=== PATIENT | female | born 1970 | race American Indian/Alaskan Native ===

== ENCOUNTER 2020-08-26 07:00 | Outpatient (REF) | payer OTHER, SELFPAY ==
[2020-08-26 07:39] LABS: COVID-19 Test Negative (Negative)
== END 2020-08-26 07:01 | disposition home or self-care (01) ==
LOC: HO.LAB 07:00
PROVIDERS: Visit Provider Internal Medicine
DX: Z20.828 Contact with and (suspected) exposure to other viral communicable diseases (principal)
CPT/HCPCS: 87635

== ENCOUNTER 2020-11-27 10:53 | Outpatient (REF) | payer OTHER, SELFPAY ==
[2020-11-27 11:16] LABS: COVID-19 Test Negative (Negative); IDNOW Serial# 55D5AD1C
== END 2020-11-27 10:54 | disposition home or self-care (01) ==
LOC: HO.EMPCOV 10:53
PROVIDERS: Visit Provider Internal Medicine
DX: Z20.822 Contact with and (suspected) exposure to COVID-19 (principal)
CPT/HCPCS: 36415; 87635; C9803

== ENCOUNTER 2021-01-04 08:13 | Outpatient (REF) | payer OTHER, SELFPAY ==
[2021-01-08 06:12] LABS: HPV mRNA E6/E7 rflx Not Detected (Not Detected)
== END 2021-01-04 08:14 | disposition home or self-care (01) ==
LOC: HO.LAB 08:13
PROVIDERS: Visit Provider Obstetrics & Gynecology
DX: Z01.419 Encounter for gynecological examination (general) (routine) without abnormal findings (principal)
CPT/HCPCS: 36415; 87624; 88142

== ENCOUNTER 2021-01-17 15:04 | Outpatient (REF) | payer OTHER, SELFPAY ==
--- NOTE | ~2021-01-17 | MM_ITS ---
EXAMINATION: MM SCREENING DIGITAL BREAST TOMOSYNTHESIS, BILATERAL CLINICAL INFORMATION: Screening. Asymptomatic. The lifetime risk of breast cancer based on the Tyrer-Cuzick Model is 12%. COMPARISON: Mammography: 01/21/2020, 01/12/2020, 12/03/2018, 05/09/2016 TECHNIQUE: Digital breast tomosynthesis is performed in both the craniocaudal and mediolateral oblique views along with computer-aided detection (CAD). Synthesized 2D images are generated from the tomosynthesis. FINDINGS: There are scattered areas of fibroglandular density (ACR BI-RADS breast composition Category b). There are no significant masses, abnormal calcifications, or other abnormalities. The lateral cyst with some scattered peripheral rim calcification central anterior 12:00 right breast is decreased in size. The axilla and skin contours are unremarkable. No significant changes. MM/MM tomosynthesis screening BI IMPRESSION: No mammographic evidence of malignancy. ASSESSMENT: BI-RADS 2: Benign RECOMMENDATION: Routine annual mammography screening. This patient's information was entered into a reminder system with a target due date for their next mammogram.
== END 2021-01-17 15:05 | disposition home or self-care (01) ==
LOC: HO.MAMMO 15:04
PROVIDERS: Visit Provider Obstetrics & Gynecology
DX: Z12.31 Encounter for screening mammogram for malignant neoplasm of breast (principal)
CPT/HCPCS: 77063; 77067

== ENCOUNTER 2021-09-15 07:12 | Outpatient (REF) | payer OTHER, SELFPAY ==
[2021-09-15 08:13] LABS: Hematocrit 39.1 % (37.0-47.0); Hemoglobin 13.3 g/dl (12.0-16.0); Mean Corpuscular Hemoglobin 30.9 pg (27.0-33.0); Mean Corpuscular Volume 90.9 fL (80.0-98.0); Mean Platelet Volume 8.8 fL (9.4-12.3); Platelet Count 404 X10*3/uL (160-400); Red Cell Distribution Width 13.3 % (11.0-16.0); White Blood Count 8.3 X10*3/uL (4.8-10.8)
[2021-09-15 08:37] LABS: Alanine Aminotransferase 85 U/L (0-31); Albumin Level 4.5 g/dL (3.5-5.0); Alkaline Phosphatase 75 U/L (39-117); Anion Gap 10 (12-20); Aspartate Amino Transferase 36 U/L (5-31); Bilirubin Total 0.6 mg/dL (0.0-1.0); Blood Urea Nitrogen 16 mg/dL (9-16); Calcium 9.6 mg/dL (8.4-10.2); Carbon Dioxide 30 mmol/L (22-29); Chloride 101 mmol/L (96-108); Cholesterol 283 mg/dL; Estimated Glomerular Filt Rate > 60; Glucose Fasting 95 mg/dL (60-99); HDL Cholesterol 45 mg/dL; LDL Cholesterol Calculated 208 mg/dl; Potassium 4.2 mmol/L (3.3-5.1); Sodium 137 mmol/L (135-145); Total Protein 7.3 g/dL (6.5-8.0); Triglycerides 150 mg/dL
[2021-09-15 08:50] LABS: Estimated Average Glucose 103 mg/dL; Hemoglobin A1c % 5.2 %
[2021-09-22 19:01] LABS: Cortisol, Free 0.59 mcg/dL
== END 2021-09-15 07:13 | disposition home or self-care (01) ==
LOC: HO.LAB 07:12
PROVIDERS: PCP Physician Assistant; Visit Provider Physician Assistant
DX: Z13.29 Encounter for screening for other suspected endocrine disorder (principal); E66.09 Other obesity due to excess calories; Z68.35 Body mass index [BMI] 35.0-35.9, adult; E78.2 Mixed hyperlipidemia
CPT/HCPCS: 36415; 80053; 80061; 82530; 83036; 84443; 85027

== ENCOUNTER 2021-10-19 15:27 | Outpatient (REF) | payer OTHER, SELFPAY ==
--- NOTE | ~2021-10-19 | US_ITS ---
EXAMINATION: US RETROPERITONEAL LIMITED (RENAL ONLY) CLINICAL INFORMATION: Malignant neoplasm of right kidney, except renal pelvis. COMPARISON: CT abdomen and pelvis 05/27/2020. Ultrasound kidneys and bladder 11/03/2019. TECHNIQUE: Real-time imaging of the kidneys. FINDINGS: RIGHT KIDNEY: 11.0 x 5.0 x 5.3 cm (SAG x AP x TRV). The kidney is normal in size, contour, and echogenicity. Renal cortical thickness is normal. No calculi or focal parenchymal lesions. No hydronephrosis. The previously identified lesion exophytic to the lateral midpole of the right kidney is not seen. LEFT KIDNEY: 12.2 x 5.4 x 4.9 cm (SAG x AP x TRV). The kidney is normal in size, contour, and echogenicity. Renal cortical thickness is normal. No calculi or focal parenchymal lesions. No hydronephrosis. Liver echotexture is increased. US/US renal BI IMPRESSION: Normal renal ultrasound. The previously identified lesion exophytic to the lateral midpole the right kidney is not seen.
== END 2021-10-19 15:28 | disposition home or self-care (01) ==
LOC: HO.US 15:27
PROVIDERS: PCP Physician Assistant; Visit Provider Physician Assistant
DX: C64.1 Malignant neoplasm of right kidney, except renal pelvis (principal)
CPT/HCPCS: 76775

== ENCOUNTER 2021-11-25 07:13 | Outpatient (REF) | payer OTHER, SELFPAY ==
[2021-11-25 07:41] LABS: COVID-19 Test Negative (Negative)
== END 2021-11-25 07:14 | disposition home or self-care (01) ==
LOC: HO.LAB 07:13
PROVIDERS: Visit Provider Internal Medicine
DX: Z20.822 Contact with and (suspected) exposure to COVID-19 (principal)
CPT/HCPCS: 87635

== ENCOUNTER → 2021-12-06 14:21 | Outpatient (BNVA) | payer OTHER, SELFPAY | PROVIDERS: PCP Physician Assistant; Visit Provider Nurse Practitioner Family ==

== ENCOUNTER 2022-01-20 08:15 | Day surgery (SDC) | payer OTHER, SELFPAY ==
--- NOTE | 2022-01-19 09:27 | P.CONAN_ITS ---
Documented by User: Radha Chaves NP 01/19/22 09:29 HPI - Anesthesia Eval Consult details Narrative: 51yo F for Colonoscopy PMFSH Active Problems Active Problems: All Active Problems (Updated 01/16/22 @ 10:48 by Ariana Anguiano, RN) Annual physical exam (Acute) Renal carcinoma (Acute) Obese (Acute) HLD (hyperlipidemia) (Acute) Well woman exam (Acute) Screening for hypothyroidism (Acute) Screening for diabetes mellitus (DM) (Acute) Family history of colon cancer (Acute) Past Medical History Medical History (Updated 01/16/22 @ 10:48 by Ariana Anguiano, RN) Chronic back pain High cholesterol History of renal cell cancer Family History Family History Father Renal cyst Hypertension Mother Rectal cancer Sister Lesion of uterus Surgical History Surgical History (Updated 01/16/22 @ 10:48 by Ariana Anguiano RN) H/O hernia repair History of colonoscopy History of kidney surgery History of tubal ligation Incarcerated hernia Social History Social History Housing: Condominium Alcohol intake: never Patient Tobacco Use Status: Never used Tobacco Tobacco use type: Cigarette e-Cigarette/Vaping Use: Never Used service: No Current occupational status: employed Meds Allergies Allergy/AdvReac Type Severity Reaction Status Date / Time Seasonal Allergies Allergy Mild watery Verified 12/06/21 14:26 eyes, runny nose Exam Exam Date and Time: January 19, [id number] Pertinent Lab Results Pertinent Lab Results: Laboratory Tests 09/15/21 09/15/21 07:22 07:22 WBC 8.3 Hgb 13.3 Hct 39.1 Plt Count 404 H Sodium 137 Potassium 4.2 Chloride 101 Carbon Dioxide 30 H BUN 16 Creatinine 0.74 Assessment and Plan Assessment Anesthesia Assessment: Chart Reviewed Documented by User: Cheo Garcia MD 01/20/22 20:54 [facility] Past Medical History Medical History (Updated 01/16/22 @ 10:48 by Ariana Anguiano, RN) Chronic back pain High cholesterol History of renal cell cancer Functional capacity: independent ambulation Family History Family History Father Renal cyst Hypertension Mother Rectal cancer Sister Lesion of uterus Family history of problems with anesthesia: No Surgical History Surgical History (Updated 01/16/22 @ 10:48 by Ariana Anguiano, RN) H/O hernia repair History of colonoscopy History of kidney surgery History of tubal ligation Incarcerated hernia History of Problems with Anesthesia: No Social History Social History Housing: Condominium Alcohol intake: never Patient Tobacco Use Status: Never used Tobacco Tobacco use type: Cigarette e-Cigarette/Vaping Use: Never Used service: No Current occupational status: employed Meds Allergies Allergy/AdvReac Type Severity Reaction Status Date / Time Seasonal Allergies Allergy Mild watery Verified 12/06/21 14:26 eyes, runny nose Exam Airway Mallampati Class: III TM Dist: >3cm Neck ROM: Full Loose/Missing/Broken Teeth: Yes Heart: rrr Lungs: distant breath sounds Assessment and Plan Assessment Anesthesia Assessment: Anesthesia Plan Discussed Final Anesthetic Review Family History of Problems with Anesthesia: No History of Problems with Anesthesia: No NPO: Yes ASA Class: III Final Preanesthetic Review: Meds/Allgs Chart Reviewed, Consent Obtained/Reviewed and Anes Risks/Benef Reviewed Patient Risk: Intermediate Procedure Risk: Intermediate Anesthetic Plan Anesthetic Plan: MAC: Disposition: Standard PACU
--- NOTE | 2022-01-20 09:51 | P.HPSUR_ITS ---
Pre-Procedural Eval Section A Date of Service: 01/20/22 The patient is an INPATIENT: No The History & Physical has been completed within 30 days and I have reviewed it.: No Section B Chief Complaint: screening, FH of colon cancer Details of Present Illness: Colon cancer screening, history of colon polyps, family history of colon cancer Relevant Family History (Specify if Yes): Yes Relevant Social History: None Present Medications: see Short Stay Collaborative assessment (Hyperlipidemia, history of renal cancer) Medical History: Significant History History of Previous Operations: Relevant previous surgery/procedure and date(s) (H/O hernia repair History of colonoscopy History of tubal ligation Incarcerated hernia) Allergies: Allergies Allergy/AdvReac Type Severity Reaction Status Date / Time Seasonal Allergies Allergy Mild watery Verified 12/06/21 14:26 eyes, runny nose Review of Systems Sugical H&P ROS: Negative: Constitution, Cardiovascular, Respiratory and Ashok rointestinal Exam Surgical H&P Exam: Normal: Heart, Normal: Lungs and Normal: Extremities Plan Diagnosis/Plan: Unchanged I have reviewed the history and physical and performed a pertinent physical examination on my patient. No changes have occurred unless specified.
--- NOTE | 2022-01-20 09:54 | P.OP_ITS ---
Operative Note Operative Note Date of Service: 01/20/22 Narrative: Pre-op diagnosis: Colon cancer screening, history of colon polyps, family history of colon cancer Post-op diagnosis:?other (Colon polyps, diverticulosis) Procedure: COLONOSCOPY TILL CECUM WITH BIOPSIES AND SNARE POLYPECTOMY Consent: Indications for the procedure and potential complications of bleeding, perforation, reaction to medications and missed diagnosis were discussed with the patient and informed consent was obtained. Instrument: Olympus PCF H 190 L variable stiffness pediatric colonoscope Monitoring: Vital signs and clinical assessment, intermittent blood pressure monitoring, continuous EKG monitoring, Pulse oximetry and Carbon Dioxide monitoring were done throughout the procedure. Colon withdrawl time was 27 minutes. Procedure: The patient was placed in the left lateral decubitis position and pre-procedure medications were administered. After a digital rectal examination of the ano-rectum, the video colonoscope was inserted into the rectum and advanced through the colon to the cecum. The colonoscope was slowly withdrawn in a retrograde panoramic fashion and the colon mucosa was carefully examined including a retroflexed view of the rectum. Findings and interventions are described below. Procedure Difficulty: Without difficulty Findings: Terminal Ileum: Not evaluated Cecum:? Normal Ascending Colon:? a 7-8 mm sessile polyp removed with a cold snare Transverse Colon:? Normal Descending Colon:? Moderate diverticulosis Sigmoid Colon:? Three 8 -10 mm sessile polyps removed with a cold snare.? A 12-15 mm sessile polyp removed with the hot snare. A 4-5 mm sessile polyp removed with the cold biopsy.? Moderate diverticulosis Rectum:? Normal Ano-rectum:? Normal Colon preparation:? Good after some irrigation (pt was able to take half of the prep due to nausea) Impression and Post Procedure Diagnosis: Colonoscopy Findings: Six small to medium sized polyps removed Moderate diverticulosis seen in the left colon Plan: Await pathology results Patient has an appointment on 02/03/22 in the GI Clinic with Poonam Vogt FNP- [facility]. Repeat Colonoscopy interval based on path results - in 3-5 years if polyps are adenomatous and 10 years if polyps are hyperplastic. Above findings were reviewed with the patient and colon polyps and diverticulosis handouts were given in the discharge area Surgeon: Hafsa Donis MD Anesthesia:?MAC (Dr Garcia) Was an Air Tube Releaser used for this Procedure?:?No Air Tube Releaser:?Jahaira Parmar Estimated blood loss (mL):?0 Pathology:?other (A. ascending colon polyp? B. sigmoid polyps (5)) Condition:?stable Disposition:?PACU
[2022-01-20 09:56] VITALS: BMI 34.3
[2022-01-20 10:02] VITALS: BP 135/87; PULSE 95; RESP 18; TEMP 36.3; O2SAT 97
[2022-01-20] MEDS: Lactated Ringers 1,000 ML 100 ML IVCONT (10:07)
[2022-01-20 11:13] VITALS: BP 134/82; PULSE 100; RESP 17; TEMP 36.1; O2SAT 100
[2022-01-20 11:28] VITALS: BP 139/87; PULSE 98; RESP 18; TEMP 36.1; O2SAT 98
== END 2022-01-20 12:00 | disposition home or self-care (01) ==
PROVIDERS: PCP Physician Assistant; Visit Provider Internal Medicine Gastroenterology
PROC: 0DJD8ZZ Inspection of Lower Intestinal Tract, Via Natural or Artificial Opening Endoscopic (ICD-10-PCS; CPT 45378; principal; 2022-01-20 09:50)
DX: Z12.11 Encounter for screening for malignant neoplasm of colon (principal); Z80.0 Family history of malignant neoplasm of digestive organs; Z86.010 Personal history of colon polyps; D12.2 Benign neoplasm of ascending colon; D12.5 Benign neoplasm of sigmoid colon; K57.30 Diverticulosis of large intestine without perforation or abscess without bleeding; Z85.528 Personal history of other malignant neoplasm of kidney; E78.00 Pure hypercholesterolemia, unspecified; Z79.899 Other long term (current) drug therapy
CPT/HCPCS: 45385; 45380; 88305

== ENCOUNTER → 2022-02-06 14:33 | Outpatient (BNVA) | payer OTHER, SELFPAY | PROVIDERS: PCP Physician Assistant; Referring Provider Physician Assistant; Visit Provider Nurse Practitioner Family | DX: Z13.89 Encounter for screening for other disorder (principal) ==

== ENCOUNTER 2022-06-07 15:32 | Outpatient (REF) | payer OTHER, SELFPAY ==
--- NOTE | ~2022-06-07 | MM_ITS ---
EXAMINATION: MM SCREENING DIGITAL BREAST TOMOSYNTHESIS, BILATERAL CLINICAL INFORMATION: Screening. Asymptomatic. The lifetime risk of breast cancer based on the Tyrer-Cuzick Model is 10%. COMPARISON: Mammography: 01/17/2021, 01/21/2020, 01/12/2020, 12/03/2018 TECHNIQUE: Digital breast tomosynthesis is performed in both the craniocaudal and mediolateral oblique views along with computer-aided detection (CAD). Synthesized 2D images are generated from the tomosynthesis. FINDINGS: There are scattered areas of fibroglandular density (ACR BI-RADS breast composition Category b). Parenchymal pattern is similar to prior exam. There is no significant mass or developing density or architectural abnormality. No abnormal calcifications. The axilla and skin contours are unremarkable. No significant changes. MM/MM tomosynthesis screening BI IMPRESSION: No mammographic evidence of malignancy. ASSESSMENT: BI-RADS 1: Negative RECOMMENDATION: Routine annual mammography screening. This patient's information was entered into a reminder system with a target due date for their next mammogram.
== END 2022-06-07 15:33 | disposition home or self-care (01) ==
LOC: HO.MAMMO 15:32
PROVIDERS: Visit Provider Obstetrics & Gynecology
DX: Z12.31 Encounter for screening mammogram for malignant neoplasm of breast (principal)
CPT/HCPCS: 77063; 77067

== ENCOUNTER 2022-11-03 06:57 | Outpatient (REF) | payer OTHER, SELFPAY ==
--- NOTE | ~2022-11-03 | US_ITS ---
EXAMINATION: US ABDOMEN LIMITED CLINICAL INFORMATION: Other specified abnormal findings of blood chemistry. COMPARISON: Renal ultrasound 10/19/2021. CT of the abdomen and pelvis 05/27/2020. Ultrasound of the kidneys and bladder 11/03/2019. TECHNIQUE: Real-time imaging of the right upper quadrant abdominal viscera. FINDINGS: PANCREAS: Pancreas could not be evaluated as it was obscured by bowel gas. LIVER: The liver is most likely enlarged with normal contour but increased echogenicity consistent with hepatic steatosis. The liver contour is normal. No focal hepatic lesion. There is no intrahepatic biliary duct dilatation seen. GALLBLADDER: Not seen although it was present on the 05/27/2020 study. Please correlate with surgical history. If there has not been a cholecystectomy, it may be that the gallbladder is just contracted and not visualized. COMMON BILE DUCT: Normal in caliber measuring 0.4 cm in diameter. RIGHT KIDNEY: The renal lesion which was decreasing in size on the CT scan is not identified on the current exam. No hydronephrosis. No renal calculi or focal parenchymal lesions. The kidney measures 10.3 cm in maximum dimension. FREE FLUID: None. US/US abdomen limited IMPRESSION: Enlarged fatty liver.
[2022-11-03 07:26] LABS: Hematocrit 41.3 % (37.0-47.0); Hemoglobin 13.9 g/dl (12.0-16.0); Mean Corpuscular HGB Conc 33.7 g/dl (31.0-35.0); Mean Corpuscular Hemoglobin 30.7 pg (27.0-33.0); Mean Corpuscular Volume 91.2 fL (80.0-98.0); Mean Platelet Volume 8.9 fL (9.4-12.3); Platelet Count 417 X10*3/uL (160-400); Red Blood Count 4.53 X10*6/uL (4.20-5.50); Red Cell Distribution Width 13.2 % (11.0-16.0); White Blood Count 8.8 X10*3/uL (4.8-10.8)
[2022-11-03 08:11] LABS: Alanine Aminotransferase 62 U/L (0-31); Albumin Level 4.7 g/dL (3.5-5.0); Alkaline Phosphatase 80 U/L (39-117); Anion Gap 13 (12-20); Aspartate Amino Transferase 28 U/L (5-31); Bilirubin Total 0.5 mg/dL (0.0-1.0); Blood Urea Nitrogen 18 mg/dL (9-16); Calcium 9.8 mg/dL (8.4-10.2); Carbon Dioxide 28 mmol/L (22-29); Chloride 104 mmol/L (96-108); Cholesterol 304 mg/dL; Estimated Glomerular Filt Rate > 60; Glucose Fasting 97 mg/dL (60-99); HDL Cholesterol 50 mg/dL; LDL Cholesterol Calculated 227 mg/dl; Potassium 4.2 mmol/L (3.3-5.1); Sodium 141 mmol/L (135-145); Total Protein 7.5 g/dL (6.5-8.0); Triglycerides 136 mg/dL
[2022-11-03 09:30] LABS: Urine Cytology See Pathology rpt
[2022-11-03 10:05] LABS: Appearance Urine Cloudy; Color Urine Yellow; Glucose Urine UA Negative (Negative); Leukocyte Esterase Urine Negative (Negative); Nitrite Urine Negative (Negative); PH 5.5 (5.0-9.0); Specific Gravity - Urine 1.025 (1.005-1.025); Urine Blood Negative (Negative); Urine Ketones Negative (Negative); Urine Protein Negative (Neg-Trace)
== END 2022-11-03 06:58 | disposition home or self-care (01) ==
LOC: HO.HMGCX 06:57
PROVIDERS: PCP Physician Assistant; Visit Provider Physician Assistant
DX: E66.09 Other obesity due to excess calories (principal); Z68.35 Body mass index [BMI] 35.0-35.9, adult; E78.2 Mixed hyperlipidemia; C64.1 Malignant neoplasm of right kidney, except renal pelvis; R30.0 Dysuria; R79.89 Other specified abnormal findings of blood chemistry; R79.9 Abnormal finding of blood chemistry, unspecified
CPT/HCPCS: 36415; 76705; 80053; 80061; 81003; 84443; 85027; 88112

== ENCOUNTER 2023-01-10 14:04 | Outpatient (REF) | payer OTHER, SELFPAY | END 2023-01-10 14:05 | disposition home or self-care (01) | LOC: HO.LAB 14:04 | PROVIDERS: PCP Physician Assistant; Referring Provider Nurse Practitioner Family; Visit Provider Surgery | DX: L02.215 Cutaneous abscess of perineum (principal) | CPT/HCPCS: 56405; 87070; 87147; 87205 ==

== ENCOUNTER → 2023-01-11 13:48 | Outpatient (BNVA) | payer OTHER, SELFPAY | PROVIDERS: PCP Physician Assistant; Visit Provider Surgery | DX: Z13.89 Encounter for screening for other disorder (principal) ==

== ENCOUNTER → 2023-02-07 15:02 | Outpatient (BNVA) | payer OTHER, SELFPAY | PROVIDERS: PCP Physician Assistant; Visit Provider Nurse Practitioner Family | DX: Z13.89 Encounter for screening for other disorder (principal) ==

== ENCOUNTER 2023-05-24 13:53 | Outpatient (AMB) | payer OTHER, SELFPAY ==
[2023-05-24 13:55] VITALS: BP 130/80; BMI 35.5
--- NOTE | 2023-05-24 13:55 | MHC.OFFVIS ---
Intake Vital Signs 05/24/23 13:55 Height 5 ft 4 in Weight 207 lb BMI 35.5 BP 130/80 Blood Pressure Location Lt brachial Position Sitting Intake Visit Reasons: [employer]OR annual exam Allergies Seasonal Allergies Allergy (Mild, Verified 05/24/23 13:58) watery eyes, runny nose HPI HPI Comments History of Present Illness Details Presenting for annual exam. No complaints. Last Pap/HPV was negative in 01/23 Last Mammogram was BI-RADS 1 in 06/26 Last Colonoscopy was in 01/24, the recommendation was to repeat in 3 years [facility] Medical History Abscess (01/10/23) Chronic back pain Diverticulosis High cholesterol History of renal cell cancer Surgical History H/O hernia repair History of colonoscopy History of kidney surgery History of tubal ligation Incarcerated hernia Family History Father Renal cyst Hypertension Mother Rectal cancer Sister Lesion of uterus Social History Household Members: None Housing: Condominium Alcohol intake: never Patient Tobacco Use Status: Never used Tobacco Tobacco use type: Cigarette e-Cigarette/Vaping Use: Never Used Second Hand Smoke Exposure: No service: No Current occupational status: employed Current occupation: [employer] Cognitive needs: No Hearing needs: No Vision needs: No Female Reproductive History Menstrual Age of Menarche: 13 Total pregnancies: 2 Number of Living Children: 2 Date of last pap smear: 01/06/21 (WNL) Review of Systems Const All systems reviewed & are unremarkable except as noted in HPI and below Card Reports as per HPI Resp Reports as per HPI GI Reports as per HPI and Reports no additional complaints Reports as per HPI Physical Exam Vital Signs: Last Vital Signs BP 130/80 05/24/23 13:55 BMI result Body Mass Index 35.5 Const General: cooperative, healthy appearing and comfortable Chest Chest palpation & inspection: normal inspection of the chest and normal palpation of entire chest wall Breast/axilla inspection: normal inspection of the breasts and normal inspection of the axillae Breast/axilla palpation: normal palpation of the breasts, normal palpation of the axillae and no axillary lymphadenopathy Resp Effort & Inspection: normal respiratory effort Auscultation: clear to auscultation bilaterally Percussion: percussion normal Cardio Palpation: normal PMI Rate: regular rate Rhythm: regular rhythm Heart sounds: no murmurs and no rubs Peripheral pulses: Peripheral pulses 2+ throughout GI Inspection: Yes normal to inspection Palpation (GI): Soft to palpation, nontender, no guarding, not rigid and No hepatosplenomegaly present Percussion: Yes normal to percussion Auscultation: normal bowel sounds Rectal Exam - Female: deferred General: Yes bladder normal to palpation External Female Exam: No lesion Speculum Exam - Vagina: normal appearance of the vagina, normal palpation, normal vaginal discharge and not erythematous Speculum Exam - Cervix: normal appearance of the cervix and normal palpation Bimanual exam- vagina & uterus: normal bimanual exam, normal palpation, uterine size normal, bladder normal to palpation, consistency normal and normal palpation Bimanual Exam- Adnexa, other: normal adnexae, no masses and no tenderness Assessment & Plan Assessment & Plan (1) Well woman exam: Code(s): Z01.419 - Encounter for gynecological examination (general) (routine) without abnormal findings Plan: Co testing not indicated this. Counseled the patient about the recommended dietary allowance of 1200 mg of Calcium & 600 IU of vitamin D. Mammogram ordered , the patient is up-to-date with her screening colonoscopy . The patient was instructed to perform monthly self-breast exams and schedule annual exam in a year; all questions answered and the patient verbalized understanding. Orders: Orders MM screening mammo BI Today Z12.31 - Encounter for screening mammogram for malignant neoplasm of breast Coding Level of Care Code Est Pt Prev Care 40-64y(88850) Diagnoses Well woman exam Z01.419
== END 2023-05-24 14:18 | disposition home or self-care (01) ==
LOC: HO.HWS 13:53
PROVIDERS: PCP Physician Assistant; Visit Provider Obstetrics & Gynecology
DX: Z01.419 Encounter for gynecological examination (general) (routine) without abnormal findings (principal)
CPT/HCPCS: 99396

== ENCOUNTER → 2023-05-24 13:53 | Outpatient (BNVA) | payer OTHER, SELFPAY | PROVIDERS: PCP Physician Assistant; Visit Provider Obstetrics & Gynecology ==

== ENCOUNTER 2023-06-27 11:41 | Outpatient (REF) | payer OTHER, SELFPAY ==
--- NOTE | ~2023-06-27 | MM_ITS ---
EXAMINATION: MM SCREENING DIGITAL BREAST TOMOSYNTHESIS, BILATERAL CLINICAL INFORMATION: Screening. Asymptomatic. COMPARISON: Mammography: 06/07/2022, 01/17/2021, 01/21/2020, 01/12/2020, 12/03/2018 TECHNIQUE: Digital breast tomosynthesis is performed in both the craniocaudal and mediolateral oblique views along with computer-aided detection (CAD). Synthesized 2D images are generated from the tomosynthesis. FINDINGS: There are scattered areas of fibroglandular density (ACR BI-RADS breast composition Category b). There are a few scattered dermal calcifications, benign. There is mild motion on the left CC projection. There are no suspicious masses, suspicious grouped calcifications, or areas of architectural distortion. The parenchymal pattern is stable from prior exams. MM/MM tomosynthesis screening BI IMPRESSION: No mammographic evidence of malignancy. Stable benign findings. ASSESSMENT: BI-RADS BI-RADS 2 - Benign Findings RECOMMENDATION: Routine annual mammography screening. 1 year F/U This examination should not preclude the clinical evaluation of a suspicious palpable abnormality. This patient's information was entered into a reminder system with a target due date for their next mammogram.
== END 2023-06-27 11:42 | disposition home or self-care (01) ==
LOC: HO.MAMMO 11:41
PROVIDERS: PCP Physician Assistant; Visit Provider Obstetrics & Gynecology
DX: Z12.31 Encounter for screening mammogram for malignant neoplasm of breast (principal)
CPT/HCPCS: 77063; 77067

== ENCOUNTER → 2023-06-27 12:00 | Outpatient (BNV) | payer OTHER, SELFPAY | PROVIDERS: PCP Physician Assistant; Visit Provider Radiology Diagnostic Radiology | DX: Z12.31 Encounter for screening mammogram for malignant neoplasm of breast (principal) | CPT/HCPCS: 77063; 77067 ==

== ENCOUNTER 2023-09-20 15:40 | Outpatient (AMB) | payer OTHER, SELFPAY ==
[2023-09-20 15:46] VITALS: BP 122/70; PULSE 100; O2SAT 98; BMI 35.5
--- NOTE | 2023-09-20 15:46 | A.OFFPC_ITS ---
Vital Signs 09/20/23 15:46 Height 5 ft 4 in Weight 207 lb BMI 35.5 BP 122/70 Blood Pressure Location Lt brachial Position Sitting Pulse 100 Pulse Source Pulse Oximeter Pulse Oximetry (%) 98 Oxygen Delivery Method Room Air Intake Visit Reasons: Annual Exam Sweatband Separator Required: No Accompanied by: Self / Same As Patient Allergies Seasonal Allergies Allergy (Mild, Verified 09/20/23 16:16) watery eyes, runny nose Medication List - Last Reconciled 09/20/23 by Victor M Christensen PA-C atorvastatin 20 mg PO DAILY 90 days Tobacco use date assessed: 09/20/23 Dental Screening Dental Screen Date: 09/20/23 Did you have a dental visit in the last 12 months?: Yes Did you have a dental problem in the last 6 months where you did not have access to dental care?: No Was dental information given to patient?: Patient has dentist HPI Annual Exam HPI Details Patient is a 52 -year-old female here today for annual physical.? Patient has a past medical history significant obesity carcinoma of the right kidney, hypercholesterolemia, vitamin-D deficiency. .. Renal Carinoma: followed by Urology- Recent CT ABD- Showing no progression in the size of mass or any new growths.? She was followed by urologist though has lost follow-ups and has not had any surveillance imaging. PLAN: Will send patient for renal ultrasound for continuing surveillance renal mass. .. HLD: Continues on statin therapy without side effect. Advised to go for fasting labs a stop. .. Obesity: Patient does understand her BMI is above 30 will work on being more physically active to reduce her weight . Colonoscopy followed by gastroenterology - colonoscopy done in 2021, tubular adenomas polyps, repeat 3 years .. vaccine: UTD Tdap ,, UTD with COVID vacine, . Considering shingles vaccine .. Mammogram:? Up-to-date with mammogram-done in June 2023- BI-RADS 2 .. 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 REPLACED BY [facility] Medical History Abscess (01/10/23) Diverticulosis Chronic back pain History of renal cell cancer High cholesterol Surgical History History of kidney surgery History of colonoscopy Incarcerated hernia H/O hernia repair History of tubal ligation Family History Father Renal cyst Hypertension Mother Rectal cancer Sister Lesion of uterus Social History Household Members: None Housing: Condominium Alcohol intake: never Patient Tobacco Use Status: Never used Tobacco Tobacco use type: Cigarette e-Cigarette/Vaping Use: Never Used Second Hand Smoke Exposure: No service: No Current occupational status: employed Current occupation: [employer] Cognitive needs: No Hearing needs: No Vision needs: No Female Reproductive History Menstrual Age of Menarche: 13 Questionnaire PHQ-9 Over the last 2 weeks, how often have you been bothered by any of the following problems? 1. Little interest or pleasure in doing things: not at all 2. Feeling down, depressed, or hopeless: not at all 3. Trouble falling or staying asleep, or sleeping too much: not at all 4. Feeling tired or having little energy: not at all 5. Poor appetite or overeating: not at all 6. Feeling bad about yourself - or that you are a failure or have let yourself or your family down: not at all 7. Trouble concentrating on things, such as reading the newspaper or watching television: not at all 8. Moving or speaking so slowly that other people could have noticed. Or the opposite - being so fidgety or restless that you have been moving around a lot more than usual: not at all 9. Thoughts that you would be better off or of hurting yourself in some way: not at all Total score: 0 Depression Screening Interpretation: Negative Depression Screening Done: Yes 51593 - PHQ-9 Billing: Yes Source: Developed by Drs. Sebas Cowan, Martita Winter, Vikash Oh and colleagues, with an educational toby from [employer]. Thrive Questionnaire Date Thrive assessed: 09/20/23 I am a: Patient What is your living situation today?: I have a steady place to live Within the past 12 months, did the food you bought not last and you didn't have the money to get more?: Never true Within the past 12 months, did you worry whether your food would run out before you got money to buy more?: Never true Do you have trouble paying for medicines?: No Do you have trouble getting transportation to medical appointments?: No Do you have trouble paying your heating and electricity bill?: No Do you have trouble taking care of your child, family member or friend?: No Do you have trouble with day-to-day activities such as bathing, preparing meals, shopping, managing finances, etc.?: No Are you currently unemployed and looking for a job?: No Are you interested in more education?: No Please select the resources that you would like help with: None Currently or been in a relationship where the following occur: no concerns reported AUDIT C Alcohol Use Questionnaire (AUDIT-C) 1. How often do you have a drink containing alcohol?: Never 3. How often do you have six or more drinks on one occasion?: Never Total Score: 0 Score Reviewed/Action Taken: Yes SHERRON-7 AMB Questionnaire SHERRON-7 Date SHERRON - 7 assessed: 09/20/23 Feeling nervous, anxious, or on edge: 0 = Not at all Not being able to stop or control worryin = Not at all Worrying too much about different things: 0 = Not at all Trouble relaxin = Not at all Being so restless that it is hard to sit still: 0 = Not at all Becoming easily annoyed or irritable: 0 = Not at all Feeling afraid as if something awful might happen: 0 = Not at all Total SHERRON-7 score (0-4 normal; 5-9 mild; 10-14 moderate; 15-21 severe): 0 Source: Developed by Drs. Sebas Cowan, Martita Winter, Vikash Oh and colleagues, with an educational toby from [employer]. SHERRON-7 Assessment Billing SHERRON-7 Assessment Tool: SHERRON-7 Assessment 59541 Review of Systems Const Denies body aches, Denies chills, Denies excessive sweating, Denies fatigue, Denies fever(s) and Denies headache(s) Eyes Denies blurry vision ENT Denies dysphagia, Denies vertigo, Denies dizziness, Denies headache(s), Denies hearing loss and Denies tinnitus Card Denies chest pain, Denies chest pain with activity, Denies syncope, Denies irregular heart rhythm and Denies dyspnea Resp Denies chest congestion, Denies cough, Denies hemoptysis, Denies dyspnea and Denies wheezing GI Denies abdominal pain, Denies melena, Denies hematochezia, Denies coffee ground emesis, Denies dysphagia, Denies diarrhea, Denies nausea and Denies vomiting Denies urinary frequency, Denies dysuria, Denies urinary hesitancy and Denies u rinary urgency Musc Denies arthralgias, Denies limited range of motion, Denies muscle cramps and Denies muscle weakness Skin/Breast Denies rash and Denies skin ulcer Neuro Denies Abnormal speech present, Denies confusion, Denies vertigo, Denies dizziness, Denies syncope, Denies headache(s), Denies memory loss and Denies sei zure-like activity Psych Denies anxiety, Denies confusion, Denies depression, Denies memory loss, Denies panic attacks and Denies paranoia Endo Denies excessive sweating, Denies fatigue, Denies flushing, Denies polydipsia and Denies polyuria Aller/Immun Denies wheezing Physical exam (Primary Care) Vital Signs: Last Vital Signs Pulse 100 09/20/23 15:46 BP 122/70 09/20/23 15:46 Pulse Ox 98 09/20/23 15:46 Oxygen Delivery Method Room Air 09/20/23 15:46 BMI result Body Mass Index 35.5 BMI Assessment/Plan discussion: High Tobacco/Smoking Status: Tobacco use Status Tobacco use date assessed 09/20/23 09/20/23 15:51 Patient Tobacco Use Status Never used Tobacco 09/20/23 15:51 Tobacco use type Cigarette 09/20/23 15:51 e-Cigarette/Vaping Use Never Used 09/20/23 15:51 PHQ-9: PHQ-9 Score PHQ-9: Total score 0 09/20/23 16:12 Depression Screening Interpretation: Negative Thrive Assessment: Date of Thrive Assessment Date Thrive assessed 09/20/23 09/20/23 15:51 Currently or been in a relationship where the following occur: no concerns reported Const Other: Obese General: cooperative, comfortable, no acute distress, alert and awake; No confusion Orientation/consciousness: oriented to person, oriented to place, patient oriented x3 and No confusion HENMT Head: Yes normocephalic Ears: external ears normal and TM's normal bilaterally Face and sinus: No sinus tenderness Mouth: Normal oral and palatal mucosa present and tongue normal Teeth and gingiva: dentition normal and gingiva normal Throat: Yes posterior oropharynx normal, Yes tonsils normal and Yes uvula midline Eyes Conjunctivae: conjunctivae normal Sclerae: sclerae normal Pupils: Equal, round and reactive pupils present EOM: EOMs intact bilaterally Direct Ophthalmoscopy: No no photophobia Neck Neck: Yes no lymphadenopathy, No tender and Yes no JVD Thyroid: Thyroid normal Carotids: no bruits Chest Chest palpation & inspection: no tenderness Resp Effort & Inspection: normal respiratory effort, no audible wheezes, not labored and no stridor Auscultation: no crackles, no rales, no rhonchi and no wheezes Cardio Jugular venous distension: no JVD Rate: regular rate, not bradycardic and not tachycardic Rhythm: regular rhythm Bruits: no carotid bruits Peripheral pulses: Peripheral pulses 2+ throughout GI Inspection: Yes normal to inspection, No abdominal wall ecchymosis and No visible herniation Palpation (GI): Soft to palpation, nontender, no guarding, not rigid and No hepatosplenomegaly present Auscultation: normoactive bowel sounds General: Yes no CVA tenderness Back/Spine/Pelvis Back: no CVA tenderness and No back tenderness Cervical Spine: cervical ROM normal Thoracic/Lumbar Spine: thoracic and lumbar spine normal to inspection, straight leg raise negative bilaterally, No thoraco-lumbar ROM limited and No lumbar spinal tenderness Skin Lesions: no lesions Rashes: no rashes Wounds: no wounds Neuro General: oriented to person, oriented to place, patient oriented x3, CN's II-XI intact bilaterally and No confusion Cranial nerves: Yes Equal, round and reactive pupils present and Yes Normal accommodation reflex present Cognition (Neuro): normal cognition Speech: No Abnormal speech present Gait exam (Neuro): Normal gait present Motor exam (neuro): 5/5 motor strength present throughout Extrem Right upper extremity: full ROM; no cyanosis Left upper extremity: full ROM; no cyanosis Right lower extremity: no edema Left lower extremity: no edema Psych Appearance: grossly normal Mental Status: mental status grossly normal Affect: normal affect Attitude: cooperative Thought process: Normal thought process present Assessment and Plan Assessment & Plan (1) Annual physical exam: Code(s): Z00.00 - Encounter for general adult medical examination without abnormal findings (2) Obese: Code(s): E66.9 - Obesity, unspecified Qualifiers: Body mass index: BMI 35.0-35.9 Obesity classification: adult class 2 (BMI 35 - 39.9) Obesity type: due to excess calories Serious obesity comorbidi ty presence: without serious comorbidity Qualified Code(s): E66.09 - Other obesity due to excess calories; Z68.35 - Body mass index [BMI] 35.0-35.9, adult Plan: Patient does understand her BMI is over 30 will work on being more physically active an Adapta better eating habits to reduce her weight. Patient is willing to try oral weight loss medication temporarily to help kick start weight loss. (3) HLD (hyperlipidemia): Code(s): E78.5 - Hyperlipidemia, unspecified Qualifiers: Hyperlipidemia type: mixed hyperlipidemia Qualified Code(s): E78.2 - Mixed hyperlipidemia Plan: Patient continues on moderate delete dosed statin therapy. Most recent lipid panel showing very elevated total cholesterol and LDL above 200. Advised to get fasting lipid panel GIRMA. LDL to be below 130 (4) Elevated LFTs: Code(s): R79.89 - Other specified abnormal findings of blood chemistry Plan: Ultrasound of liver does show signs consistent with fatty liver disease. Will continue working on weight reduction. (5) Renal carcinoma: Code(s): C64.9 - Malignant neoplasm of unspecified kidney, except renal pelvis Qualifiers: Laterality: right Qualified Code(s): C64.1 - Malignant neoplasm of right kidney, except renal pelvis Plan: Patient has a history of renal carcinoma. Has not had any surveillance recently. Will send for renal ultrasound to evaluate for any enlarging mass. (6) Screening for diabetes mellitus (DM): Code(s): Z13.1 - Encounter for screening for diabetes mellitus Orders: Orders US renal RT 09/20/23 C64.1 - Malignant neoplasm of right kidney, except renal pelvis Lipid Panel 09/20/23 E78.2 - Mixed hyperlipidemia Comprehensive [place]. Panel Fast 09/20/23 E78.2 - Mixed hyperlipidemia Complete Blood Count no Diff 09/20/23 E78.2 - Mixed hyperlipidemia Medications: New phentermine must administer 30 minutes before or 1-2 hours after breakfast 37.5 mg PO DAILY 28 days 28 tabs 0RF E66.09 - Other obesity due to excess calories, Z68.35 - Body mass index [BMI] 35.0-35.9, adult Refilled atorvastatin 20 mg PO DAILY 90 days 90 tabs 2RF E78.2 - Mixed hyperlipidemia Coding Level of Care Code Est Pt Prev Care 40-64y(42548) Diagnoses Annual physical exam Z00.00 Class 2 obesity due to excess calories without serious comorbidity with body mass index (BMI) of 35.0 to 35.9 in adult E66.09; Z68.35 Body mass index: BMI 35.0-35.9 Obesity classification: adult class 2 (BMI 35 - 39.9) Obesity type: due to excess calories Serious obesity comorbidity presence: without serious comorbidity Mixed hyperlipidemia E78.2 Hyperlipidemia type: mixed hyperlipidemia Elevated LFTs R79.89 Carcinoma of right kidney C64.1 Laterality: right Screening for diabetes mellitus (DM) Z13.1 Additional Codes SHERRON-7 Assessment Billing - SHERRON-7 Assessment Tool: SHERRON-7 Assessment 92171 ([id number])
== END 2023-09-20 16:34 | disposition home or self-care (01) ==
PROVIDERS: Visit Provider Physician Assistant
DX: Z00.00 Encounter for general adult medical examination without abnormal findings (principal); C64.1 Malignant neoplasm of right kidney, except renal pelvis; E66.09 Other obesity due to excess calories; Z68.35 Body mass index [BMI] 35.0-35.9, adult; E78.2 Mixed hyperlipidemia; R79.89 Other specified abnormal findings of blood chemistry; Z13.1 Encounter for screening for diabetes mellitus
CPT/HCPCS: 99396

== ENCOUNTER 2023-10-03 13:42 | Outpatient (REF) | payer OTHER, SELFPAY ==
--- NOTE | ~2023-10-03 | US_ITS ---
EXAMINATION: US RETROPERITONEAL LIMITED, RIGHT CLINICAL INFORMATION: Malignant neoplasm of right kidney, except renal pelvis. History of renal cancer. COMPARISON: Ultrasound abdomen limited 11/03/2022. Ultrasound retroperitoneal limited 10/19/2021. CT abdomen and pelvis without and with contrast 05/27/2020. TECHNIQUE: Real-time imaging of the right kidney. FINDINGS: RIGHT KIDNEY: 10.8 x 5.1 x 4.8 cm (SAG x AP x TRV). The kidney is normal in size, contour, and echogenicity. Renal cortical thickness is normal. No hydronephrosis. A 1.2 cm slightly echogenic mass noted along the right mid renal pole without internal vascularity, not seen on prior ultrasounds although possibly correlating to the site of prior cryoablation seen 05/27/2020 where it measured 2 cm. Partially imaged liver appears echogenic suggestive of hepatic steatosis or underlying liver disease. This could be further characterized with a dedicated right upper quadrant ultrasound if clinically indicated. US/US renal RT IMPRESSION: 1. A 1.2 cm slightly echogenic mass noted along the right mid renal pole without internal vascularity, not seen on prior ultrasounds although possibly correlating to the site of prior cryoablation seen 05/27/2020 where it measured 2 cm, however given new from prior ultrasounds consider confirmation with CT or MRI renal mass protocol to assess for any locally recurrent disease. 2. Partially imaged liver appears echogenic suggestive of hepatic steatosis or underlying liver disease. This could be further characterized with a dedicated right upper quadrant ultrasound
== END 2023-10-03 13:43 | disposition home or self-care (01) ==
LOC: HO.HMGCX 13:42
PROVIDERS: PCP Physician Assistant; Visit Provider Physician Assistant
DX: C64.1 Malignant neoplasm of right kidney, except renal pelvis (principal)
CPT/HCPCS: 76775

== ENCOUNTER 2023-10-09 07:01 | Outpatient (REF) | payer OTHER, SELFPAY ==
[2023-10-09 07:29] LABS: Hematocrit 41.5 % (37.0-47.0); Hemoglobin 14.1 g/dl (12.0-16.0); Mean Corpuscular Hemoglobin 30.6 pg (27.0-33.0); Mean Platelet Volume 8.8 fL (9.4-12.3); Platelet Count 434 X10*3/uL (160-400); Red Blood Count 4.61 X10*6/uL (4.20-5.50); Red Cell Distribution Width 13.1 % (11.0-16.0); White Blood Count 10.8 X10*3/uL (4.8-10.8)
[2023-10-09 07:43] LABS: Alanine Aminotransferase 61 U/L (0-31); Albumin Level 4.7 g/dL (3.5-5.0); Alkaline Phosphatase 84 U/L (39-117); Anion Gap 14 (12-20); Aspartate Amino Transferase 34 U/L (5-31); Bilirubin Total 0.8 mg/dL (0.0-1.0); Blood Urea Nitrogen 14 mg/dL (9-16); Calcium 9.9 mg/dL (8.4-10.2); Carbon Dioxide 27 mmol/L (22-29); Chloride 103 mmol/L (96-108); Cholesterol 216 mg/dL (<200); Estimated Glomerular Filt Rate > 60; Glucose Fasting 101 mg/dL (60-99); HDL Cholesterol 50 mg/dL (>40); LDL Cholesterol Calculated 143 mg/dL (<100); Potassium 3.6 mmol/L (3.3-5.1); Sodium 140 mmol/L (135-145); Total Protein 8.2 g/dL (6.5-8.0); Triglycerides 115 mg/dL (<150)
== END 2023-10-09 07:02 | disposition home or self-care (01) ==
LOC: HO.LAB 07:01
PROVIDERS: PCP Physician Assistant; Visit Provider Physician Assistant
DX: E78.2 Mixed hyperlipidemia (principal)
CPT/HCPCS: 36415; 80053; 80061; 85027

== ENCOUNTER 2023-11-13 08:08 | Outpatient (REF) | payer OTHER, SELFPAY ==
--- NOTE | ~2023-11-13 | MR_ITS ---
EXAMINATION: MR ABDOMEN WITHOUT AND WITH CONTRAST CLINICAL INFORMATION: Malignant neoplasm of the right kidney COMPARISON: Renal ultrasound 09/24/1993, CT abdomen and pelvis 05/27/2020 TECHNIQUE: MRI of the abdomen before and after the IV administration of 9 mL of Gadavist was obtained using routine sequences. FINDINGS: LUNG BASES: The visualized lung bases are unremarkable. KIDNEYS AND URETERS: Posttreatment changes in the right lower pole renal cryoablation with some intrinsically T1 bright /T2 dark nonenhancing material measuring 0.9 cm previously 2.1 cm which may some residual loculated proteinaceous/hemorrhagic fluid and sequelae of posttreatment change. No enhancing solid soft tissue to suggest residual recurrent disease. GALLBLADDER: Cholelithiasis without evidence of acute cholecystitis. LIVER AND BILIARY TREE: Loss of signal on opposed phase imaging compatible with hepatic steatosis. Scattered benign-appearing simple hepatic cysts. No intra or extrahepatic biliary duct dilatation. PANCREAS: Unremarkable SPLEEN: Accessory splenule incidentally noted. ADRENAL GLANDS: Unremarkable GASTROINTESTINAL TRACT: Unremarkable. LYMPH NODES: No lymphadenopathy. VASCULAR: Unremarkable ABDOMINAL WALL: Unremarkable. OSSEOUS STRUCTURES: Unremarkable. MR/MR abdomen wo/w con IMPRESSION: Posttreatment changes in the right lower pole of the kidney without findings to suggest residual or recurrent disease. Cholelithiasis without evidence of acute cholecystitis.
[2023-11-13] MEDS: gadobutroL 10 ML VIAL IVPUSH (08:58)
== END 2023-11-13 08:09 | disposition home or self-care (01) ==
LOC: HO.MRI 08:08
PROVIDERS: PCP Physician Assistant; Visit Provider Physician Assistant
DX: C64.1 Malignant neoplasm of right kidney, except renal pelvis (principal)
CPT/HCPCS: 74183; A9585

== ENCOUNTER 2023-11-14 15:26 | Outpatient (AMB) | payer OTHER, SELFPAY ==
--- NOTE | 2023-11-14 15:27 | MHC.PC.OV ---
Vital Signs 11/14/23 15:28 Height 5 ft 4 in Weight 196 lb 0.8 oz BMI 33.6 BP 124/78 Blood Pressure Location Lt brachial Position Sitting Pulse 88 Pulse Source Pulse Oximeter Pulse Oximetry (%) 98 Oxygen Delivery Method Room Air Intake Visit Reasons: 8 week f/u Allergies Seasonal Allergies Allergy (Mild, Verified 11/14/23 15:38) watery eyes, runny nose Medication List - Last Reconciled 11/14/23 by Victor M Christensen PA-C atorvastatin 20 mg PO DAILY 90 days phentermine 37.5 mg PO DAILY 28 days Tobacco use date assessed: 11/14/23 Dental Screening Dental Screen Date: 11/14/23 Did you have a dental visit in the last 12 months?: Yes Did you have a dental problem in the last 6 months where you did not have access to dental care?: No Was dental information given to patient?: Patient has dentist HPI 8 week f/u HPI Details Patient is a 52 -year-old female here today for a follow-up visit.? Patient has a past medical history significant obesity carcinoma of the right kidney, hypercholesterolemia, vitamin-D deficiency. .. Renal Carinoma: followed by Urology- Recent CT ABD- Showing no progression in the size of mass or any new growths.? She was followed by urologist though has lost follow-ups and has not had any surveillance imaging. We did again a follow-up renal ultrasound did show 1.2 cm mass MRI of abdomen recommended. MRI done recently in awaiting results.. .. HLD: Continues on statin therapy without side effect. Most recent lipid panel showing much improved total cholesterol and LDL. .. Obesity: At last visit we decided to start phentermine which has helped her lose weight. She reports having more motivation has been bit more physically active. Her portion control has been much better. Laboratory Tests 09/15/21 09/15/21 11/03/22 07:22 07:22 07:01 RBC Fasting Glucose AST ALT Cholesterol 283 304 LDL Cholesterol, C alc 208 11/03/22 10/09/23 07:01 07:10 RBC 4.61 Fasting Glucose 101 H AST 34 H ALT 61 H Cholesterol 216 H LDL Cholesterol, C alc 227 143 H PFS Medical History Abscess (01/10/23) Diverticulosis Chronic back pain History of renal cell cancer High cholesterol Surgical History History of kidney surgery History of colonoscopy Incarcerated hernia H/O hernia repair History of tubal ligation Family History Father Renal cyst Hypertension Mother Rectal cancer Sister Lesion of uterus Social History Household Members: None Housing: Condominium Alcohol intake: never Patient Tobacco Use Status: Never used Tobacco Tobacco use type: Cigarette e-Cigarette/Vaping Use: Never Used Second Hand Smoke Exposure: No service: No Current occupational status: employed Current occupation: [employer] Cognitive needs: No Hearing needs: No Vision needs: No Female Reproductive History Menstrual Age of Menarche: 13 Questionnaire Thrive Questionnaire Date Thrive assessed: 09/20/23 AUDIT C Alcohol Use Questionnaire (AUDIT-C) 1. How often do you have a drink containing alcohol?: Never 3. How often do you have six or more drinks on one occasion?: Never Total Score: 0 Score Reviewed/Action Taken: Yes SHERRON-7 AMB Questionnaire SHERRON-7 Date SHERRON - 7 assessed: 11/14/23 Source: Developed by Drs. Sebas Cowan, Martita Winter, Vikash Oh and colleagues, with an educational toby from [employer]. Review of Systems Const Denies headache(s) Eyes Denies loss of vision ENT Denies vertigo, Denies dizziness, Denies headache(s) and Denies sore throat Card Denies chest pain, Denies leg edema and Denies lightheadedness Resp Denies cough, Denies hemoptysis and Denies wheezing GI Denies abdominal pain, Denies melena, Denies constipation, Denies diarrhea and Denies vomiting Denies urinary frequency, Denies dysuria and Denies urinary urgency Musc Denies arthralgias, Denies joint swelling, Denies numbness and Denies tingling Neuro Denies Abnormal speech present, Denies behavioral changes, Denies vertigo, Denies dizziness, Denies headache(s), Denies loss of vision, Denies memory loss, Denies numbness and Denies tingling Psych Denies anxiety, Denies behavioral changes, Denies depression, Denies memory loss and Denies panic attacks Wes/Lymph Denies easy bleeding and Denies easy bruising Aller/Immun Denies wheezing Physical exam (Primary Care) Vital Signs: Last Vital Signs Pulse 88 11/14/23 15:28 BP 124/78 11/14/23 15:28 Pulse Ox 98 11/14/23 15:28 Oxygen Delivery Method Room Air 11/14/23 15:28 BMI result Body Mass Index 33.6 BMI Assessment/Plan discussion: High Tobacco/Smoking Status: Tobacco use Status Tobacco use date assessed 11/14/23 11/14/23 15:29 Patient Tobacco Use Status Never used Tobacco 11/14/23 15:29 Tobacco use type Cigarette 11/14/23 15:29 e-Cigarette/Vaping Use Never Used 11/14/23 15:29 Thrive Assessment: Date of Thrive Assessment Date Thrive assessed 09/20/23 11/14/23 15:29 Const Other: Obese General: healthy appearing, no acute distress, alert and awake Nutritional Appearance: well nourished Orientation/consciousness: oriented to person, oriented to place and oriented to time HENMT Ears: TM's normal bilaterally General nose exam: Normal nasal mucous membranes and turbinates present Eyes Conjunctivae: conjunctivae normal Sclerae: sclerae normal Pupils: Equal, round and reactive pupils present Neck Neck: Yes no lymphadenopathy and Yes no JVD Thyroid: Thyroid normal Carotids: no bruits Resp Effort & Inspection: normal respiratory effort and not tachypneic Auscultation: no crackles, no rales, no rhonchi and no wheezes Cardio Rate: regular rate Rhythm: regular rhythm Heart sounds: no murmurs and normal S1 and S2 GI Palpation (GI): Soft to palpation, nontender, no hepatomegaly and no splenomegaly Auscultation: normal bowel sounds Skin General skin exam: no rashes or lesions noted and dry skin Neuro General: oriented to person, oriented to place and oriented to time Cranial nerves: Yes Equal, round and reactive pupils present Speech: No Abnormal speech present Gait exam (Neuro): Normal gait present Motor exam (neuro): no tremor noted Extrem Right upper extremity: full ROM Left upper extremity: full ROM Right lower extremity: full ROM; no edema Left lower extremity: full ROM; no edema Psych Mental Status: mental status grossly normal Speech and movement: Normal speech and movement present Affect: normal affect Attitude: cooperative Thought process: Normal thought process present Assessment and Plan Assessment & Plan (1) Obese: Code(s): E66.9 - Obesity, unspecified Qualifiers: Obesity type: due to excess calories Obesity classification: adult class 2 (BMI 35 - 39.9) Serious obesity comorbidity presence: without serious comorbidity Body mass index: BMI 35.0-35.9 Qualified Code(s): E66.09 - Other obesity due to excess calories; Z68.35 - Body mass index [BMI] 35.0-35.9, adult Plan: Has lost 10 lb since last office visit. BMI improved. She has been feeling much better. Has been using phentermine on as needed basis and feels it gives her motivation. We did discuss the possibility of transitioning to a GL P 1 for weight loss and patient is considering. (2) HLD (hyperlipidemia): Code(s): E78.5 - Hyperlipidemia, unspecified Qualifiers: Hyperlipidemia type: mixed hyperlipidemia Qualified Code(s): E78.2 - Mixed hyperlipidemia Plan: Patient continues on moderate delete dosed statin therapy. Most recent fasting lipid panel showing much improved total cholesterol and LDL. LDL to be below 130 (3) Elevated LFTs: Code(s): R79.89 - Other specified abnormal findings of blood chemistry Plan: Ultrasound of liver does show signs consistent with fatty liver disease. Will continue working on weight reduction. (4) Renal carcinoma: Code(s): C64.9 - Malignant neoplasm of unspecified kidney, except renal pelvis Qualifiers: Laterality: right Qualified Code(s): C64.1 - Malignant neoplasm of right kidney, except renal pelvis Plan: Patient has a history of renal carcinoma. Has had recent ultrasound showing 1.2 cm mass which could be a sequelae of her cryo ablation. MRI abdomen done and awaiting results. Orders: Orders Lipid Panel 10 Months E78.2 - Mixed hyperlipidemia Comprehensive [place]. Panel Fast 10 Months Z13.1 - Encounter for screening for diabetes mellitus Coding Level of Care Code Est Pt Level 4 (60858) Diagnoses Class 2 obesity due to excess calories without serious comorbidity with body mass index (BMI) of 35.0 to 35.9 in adult E66.09; Z68.35 Obesity type: due to excess calories Obesity classification: adult class 2 (BMI 35 - 39.9) Serious obesity comorbidity presence: without serious comorbidity Body mass index: BMI 35.0-35.9 Mixed hyperlipidemia E78.2 Hyperlipidemia type: mixed hyperlipidemia Elevated LFTs R79.89 Carcinoma of right kidney C64.1 Laterality: right
[2023-11-14 15:28] VITALS: BP 124/78; PULSE 88; O2SAT 98; BMI 33.6
== END 2023-11-14 16:36 | disposition home or self-care (01) ==
PROVIDERS: PCP Physician Assistant; Visit Provider Physician Assistant
DX: E78.2 Mixed hyperlipidemia (principal); E66.09 Other obesity due to excess calories; Z68.35 Body mass index [BMI] 35.0-35.9, adult; C64.1 Malignant neoplasm of right kidney, except renal pelvis; R79.89 Other specified abnormal findings of blood chemistry
CPT/HCPCS: 99214

== ENCOUNTER 2024-08-22 08:56 | Outpatient (REF) | payer OTHER, SELFPAY ==
--- NOTE | ~2024-08-22 | MM_ITS ---
EXAMINATION: MM SCREENING DIGITAL BREAST TOMOSYNTHESIS, BILATERAL CLINICAL INFORMATION: Screening. Asymptomatic. COMPARISON: Mammography: Comparison is made with available priors TECHNIQUE: Digital breast mammography with tomosynthesis is performed in both the craniocaudal and mediolateral oblique views along with computer-aided detection (CAD). FINDINGS: There are scattered areas of fibroglandular density (ACR BI-RADS breast composition Category b). There are no significant masses, abnormal calcifications, or other abnormalities. MM/MM tomosynthesis screening BI IMPRESSION: No mammographic evidence of malignancy. ASSESSMENT: BI-RADS BI-RADS 1 - Negative RECOMMENDATION: Routine annual mammography screening. 1 year F/U This examination should not preclude the clinical evaluation of a suspicious palpable abnormality. This patient's information was entered into a reminder system with a target due date for their next mammogram. Electronically signed by: Mariana Resendez DO 09/02/2024 02:46 PM EDT
== END 2024-08-22 08:57 | disposition home or self-care (01) ==
LOC: HO.MAMMO 08:56
PROVIDERS: PCP Physician Assistant; Visit Provider Physician Assistant
DX: Z12.31 Encounter for screening mammogram for malignant neoplasm of breast (principal)
CPT/HCPCS: 77063; 77067

== ENCOUNTER → 2024-08-22 09:00 | Outpatient (BNV) | payer OTHER, SELFPAY | PROVIDERS: PCP Physician Assistant; Visit Provider Internal Medicine | DX: Z12.31 Encounter for screening mammogram for malignant neoplasm of breast (principal) | CPT/HCPCS: 77063; 77067 ==

== ENCOUNTER 2024-09-08 10:32 | Outpatient (AMB) | payer OTHER, SELFPAY ==
[2024-09-08 10:32] VITALS: BP 132/66; BMI 34.4
--- NOTE | 2024-09-08 10:32 | A.OFFVIS_ITS ---
Vital Signs 09/08/24 10:32 Height 5 ft 4 in Weight 200 lb 4 oz BMI 34.4 BP 132/66 Blood Pressure Location Lt brachial Position Sitting Intake Visit Reasons: [employer] annual exam/DO NOT RS Allergies Seasonal Allergies Allergy (Mild, Verified 09/08/24 10:32) watery eyes, runny nose HPI Comments Details: Presenting for annual exam. No complaints. Last Pap/HPV was negative in 01/23 Last Mammogram was BI-RADS 1 in 08/28 Last Colonoscopy was in 01/24, the recommendation was to repeat in 3 years [facility] Medical History Abscess (01/10/23) Diverticulosis Chronic back pain History of renal cell cancer High cholesterol Surgical History History of kidney surgery History of colonoscopy Incarcerated hernia H/O hernia repair History of tubal ligation Family History Father Renal cyst Hypertension Mother Rectal cancer Sister Lesion of uterus Social History Household Members: None Housing: Condominium Alcohol intake: never Patient Tobacco Use Status: Never used Tobacco Tobacco use type: Cigarette e-Cigarette/Vaping Use: Never Used Second Hand Smoke Exposure: No service: No Current occupational status: employed Current occupation: [employer]- [employer] Cognitive needs: No Hearing needs: No Vision needs: No Female Reproductive History Menstrual Age of Menarche: 13 control method: none Total pregnancies: 2 Full term: 2 Number of Living Children: 2 Date of last pap smear: 01/06/21 History of abnormal pap smear: No History of STI: No Date of Mammogram: 08/22/24 History of abnormal mammogram: No Review of Systems Const All systems reviewed & are unremarkable except as noted in HPI and below Card Reports as per HPI Resp Reports as per HPI GI Reports as per HPI and Reports no additional complaints Reports as per HPI Physical Exam Const General: cooperative, healthy appearing and comfortable Chest Chest palpation & inspection: normal inspection of the chest and normal palpation of entire chest wall Breast/axilla inspection: normal inspection of the breasts and normal inspection of the axillae Breast/axilla palpation: normal palpation of the breasts, normal palpation of the axillae and no axillary lymphadenopathy Resp Effort & Inspection: normal respiratory effort Auscultation: clear to auscultation bilaterally Percussion: percussion normal Cardio Palpation: normal PMI Rate: regular rate Rhythm: regular rhythm Heart sounds: no murmurs and no rubs Peripheral pulses: Peripheral pulses 2+ throughout GI Inspection: Yes normal to inspection Palpation (GI): Soft to palpation, nontender, no guarding, not rigid and No h epatosplenomegaly present Percussion: Yes normal to percussion Auscultation: normal bowel sounds Rectal Exam - Female: deferred General: Yes bladder normal to palpation External Female Exam: No lesion Speculum Exam - Vagina: normal appearance of the vagina, normal palpation, normal vaginal discharge and not erythematous Speculum Exam - Cervix: normal appearance of the cervix and normal palpation Bimanual exam- vagina & uterus: normal bimanual exam, normal palpation, uterine size normal, bladder normal to palpation, consistency normal and normal palpation Bimanual Exam- Adnexa, other: normal adnexae, no masses and no tenderness Assessment & Plan Assessment & Plan (1) Well woman exam: Code(s): Z01.419 - Encounter for gynecological examination (general) (routine) without abnormal findings Category: Medical Plan: Co testing not indicated this year. Counseled the patient about the recommended dietary allowance of 1200 mg of Calcium & 600 IU of vitamin D. Instructions given the patient to schedule next screening Mammogram in 08/29. The patient was instructed to perform monthly self-breast exams and schedule annual exam in a year. All questions answered and the patient verbalized understanding. Coding Level of Care Code Est Pt Prev Care 40-64y(98981) Diagnoses Well woman exam Z01.419
== END 2024-09-08 10:48 | disposition home or self-care (01) ==
LOC: HO.HWS 10:33
PROVIDERS: PCP Physician Assistant; Visit Provider Obstetrics & Gynecology
DX: Z01.419 Encounter for gynecological examination (general) (routine) without abnormal findings (principal)
CPT/HCPCS: 99396

== ENCOUNTER → 2024-09-08 10:32 | Outpatient (BNVA) | payer OTHER, SELFPAY | PROVIDERS: PCP Physician Assistant; Visit Provider Obstetrics & Gynecology ==

== ENCOUNTER 2024-09-23 14:53 | Outpatient (AMB) | payer OTHER, SELFPAY ==
--- NOTE | 2024-09-23 15:12 | A.OFFPC_ITS ---
Vital Signs 09/23/24 15:15 Height 5 ft 4 in Weight 199 lb 6 oz BMI 34.2 BP 148/94 H Blood Pressure Location Lt brachial Position Sitting Pulse 100 Pulse Source Pulse Oximeter Pulse Oximetry (%) 97 Oxygen Delivery Method Room Air Intake Visit Reasons: Annual exam Intake Note: Patient is here today for a physical. Education Department Registrar Required: No Accompanied by: Self / Same As Patient Allergies Seasonal Allergies Allergy (Mild, Verified 09/23/24 15:34) watery eyes, runny nose Medication List - Last Reconciled 09/23/24 by Victor M Christensen PA-C atorvastatin 20 mg PO DAILY 90 days Tobacco use date assessed: 11/14/23 Dental Screening Dental Screen Date: 11/14/23 HPI Annual exam HPI Details Patient is a 53 -year-old female here today for routine annual physical.? Patient has a past medical history significant obesity carcinoma of the right kidney, hypercholesterolemia, vitamin-D deficiency. .. Renal Carinoma: followed by Urology- Recent CT ABD- Showing no progression in the size of mass or any new growths.? She was followed by urologist though has lost follow-ups and has not had any surveillance imaging. Has been followed with abdominal MRIs. .. HLD: Continues on statin therapy without side effect. Most recent lipid panel showing much improved total cholesterol and LDL. .. Obesity: Unfortunately has not been able to lose much weight on her own. She does admit to being a bit more physically active and adapting better eating habits. Phentermine though had side effects.. She is interested in starting a GLP 1 to help her lose weight Colonoscopy followed by gastroenterology - colonoscopy done in 2021, tubular adenomas polyps, repeat 3 years .. vaccine: UTD Tdap ,, UTD with COVID vacine, up-to-date with flu vaccine . Considering shingles vaccine .. Mammogram:? Up-to-date with mammogram-done in June 2023- BI-RADS 2 .. 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 Laboratory Tests 10/09/23 07:10 Cholesterol 216 H LDL Cholesterol, C alc 143 H PFSH Medical History (Updated 09/24/24 @ 07:28 by Victor M Christensen PA-C) Perineal abscess Abscess (01/10/23) Chronic back pain History of renal cell cancer High cholesterol Surgical History History of kidney surgery History of colonoscopy Incarcerated hernia H/O hernia repair History of tubal ligation Family History Father Renal cyst Hypertension Mother Rectal cancer Sister Lesion of uterus Social History Household Members: None Housing: Condominium Alcohol intake: never Patient Tobacco Use Status: Never used Tobacco Tobacco use type: Cigarette e-Cigarette/Vaping Use: Never Used Second Hand Smoke Exposure: No service: No Current occupational status: employed Current occupation: [employer] Cognitive needs: No Hearing needs: No Vision needs: No Female Reproductive History Menstrual Age of Menarche: 13 Questionnaire PHQ-9 Over the last 2 weeks, how often have you been bothered by any of the following problems? 1. Little interest or pleasure in doing things: not at all 2. Feeling down, depressed, or hopeless: not at all 3. Trouble falling or staying asleep, or sleeping too much: not at all 4. Feeling tired or having little energy: not at all 5. Poor appetite or overeating: not at all 6. Feeling bad about yourself - or that you are a failure or have let yourself or your family down: not at all 7. Trouble concentrating on things, such as reading the newspaper or watching television: not at all 8. Moving or speaking so slowly that other people could have noticed. Or the opposite - being so fidgety or restless that you have been moving around a lot more than usual: not at all 9. Thoughts that you would be better off or of hurting yourself in some way: not at all Total score: 0 Depression Screening Interpretation: Negative Depression Screening Done: Yes 33180 - PHQ-9 Billing: Yes Source: Developed by Drs. Sebas Cowan, Martita Winter, Vikash Oh and colleagues, with an educational toby from [employer]. Thrive Questionnaire Date Thrive assessed: 09/23/24 I am a: Patient What is your living situation today?: I have a steady place to live Within the past 12 months, did the food you bought not last and you didn't have the money to get more?: Never true Within the past 12 months, did you worry whether your food would run out before you got money to buy more?: Never true Do you have trouble paying for medicines?: No Do you have trouble getting transportation to medical appointments?: No Do you have trouble paying your heating and electricity bill?: No Do you have trouble taking care of your child, family member or friend?: No Do you have trouble with day-to-day activities such as bathing, preparing meals, shopping, managing finances, etc.?: No Are you currently unemployed and looking for a job?: No Are you interested in more education?: No Please select the resources that you would like help with: None Currently or been in a relationship where the following occur: No concerns reported THRIVE Score: 0 AUDIT C Alcohol Use Questionnaire (AUDIT-C) 1. How often do you have a drink containing alcohol?: Never 3. How often do you have six or more drinks on one occasion?: Never Total Score: 0 Score Reviewed/Action Taken: Yes SHERRON-7 AMB Questionnaire SHERRON-7 Date SHERRON - 7 assessed: 09/23/24 Feeling nervous, anxious, or on edge: 0 = Not at all Not being able to stop or control worryin = Not at all Worrying too much about different things: 0 = Not at all Trouble relaxin = Not at all Being so restless that it is hard to sit still: 0 = Not at all Becoming easily annoyed or irritable: 0 = Not at all Feeling afraid as if something awful might happen: 0 = Not at all Total SHERRON-7 score (0-4 normal; 5-9 mild; 10-14 moderate; 15-21 severe): 0 Source: Developed by Drs. Sebas Cowan, Martita Winter, Vikash Oh and colleagues, with an educational toby from [employer]. SHERRON-7 Assessment Billing SHERRON-7 Assessment Tool: SHERRON-7 Assessment 53687 Review of Systems Const Denies body aches, Denies chills, Denies excessive sweating, Denies fatigue, Denies fever(s) and Denies headache(s) Eyes Denies blurry vision ENT Denies dysphagia, Denies vertigo, Denies dizziness, Denies headache(s), Denies hearing loss and Denies tinnitus Card Denies chest pain, Denies chest pain with activity, Denies syncope, Denies irregular heart rhythm and Denies dyspnea Resp Denies chest congestion, Denies cough, Denies hemoptysis, Denies dyspnea and Denies wheezing GI Denies abdominal pain, Denies melena, Denies hematochezia, Denies coffee ground emesis, Denies dysphagia, Denies diarrhea, Denies nausea and Denies vomiting Denies urinary frequency, Denies dysuria, Denies urinary hesitancy and Denies urinary urgency Musc Denies arthralgias, Denies limited range of motion, Denies muscle cramps and Denies muscle weakness Skin/Breast Denies rash and Denies skin ulcer Neuro Denies Abnormal speech present, Denies confusion, Denies vertigo, Denies dizziness, Denies syncope, Denies headache(s), Denies memory loss and Denies seizure-like activity Psych Denies anxiety, Denies confusion, Denies depression, Denies memory loss, Denies panic attacks and Denies paranoia Endo Denies excessive sweating, Denies fatigue, Denies flushing, Denies polydipsia and Denies polyuria Aller/Immun Denies wheezing Physical exam (Primary Care) Vital Signs: Last Vital Signs Pulse 100 09/23/24 15:15 BP 148/94 H 09/23/24 15:15 Pulse Ox 97 09/23/24 15:15 Oxygen Delivery Method Room Air 09/23/24 15:15 BMI result Body Mass Index 34.2 BMI Assessment/Plan discussion: High BMI High, discussed plan: lifestyle, weight reduction, dietary and physical activity Tobacco/Smoking Status: Tobacco use Status Tobacco use date assessed 11/14/23 09/23/24 15:13 Patient Tobacco Use Status Never used Tobacco 09/23/24 15:13 Tobacco use type Cigarette 09/23/24 15:13 e-Cigarette/Vaping Use Never Used 09/23/24 15:13 PHQ-9: PHQ-9 Score PHQ-9: Total score 0 09/23/24 15:38 Depression Screening Interpretation: Negative Thrive Assessment: Date of Thrive Assessment Date Thrive assessed 09/23/24 09/23/24 15:17 Currently or been in a relationship where the following occur: No concerns rep orted Const General: cooperative, comfortable, no acute distress, alert and awake; No confusion Orientation/consciousness: oriented to person, oriented to place, patient oriented x3 and No confusion HENMT Head: Yes normocephalic Ears: external ears normal and TM's normal bilaterally Face and sinus: No sinus tenderness Mouth: Normal oral and palatal mucosa present and tongue normal Teeth and gingiva: dentition normal and gingiva normal Throat: Yes posterior oropharynx normal, Yes tonsils normal and Yes uvula midline Eyes Conjunctivae: conjunctivae normal Sclerae: sclerae normal Pupils: Equal, round and reactive pupils present EOM: EOMs intact bilaterally Direct Ophthalmoscopy: No no photophobia Neck Neck: Yes no lymphadenopathy, No tender and Yes no JVD Thyroid: Thyroid normal Carotids: no bruits Chest Chest palpation & inspection: no tenderness Resp Effort & Inspection: normal respiratory effort, no audible wheezes, not labored and no stridor Auscultation: no crackles, no rales, no rhonchi and no wheezes Cardio Jugular venous distension: no JVD Rate: regular rate, not bradycardic and not tachycardic Rhythm: regular rhythm Bruits: no carotid bruits Peripheral pulses: Peripheral pulses 2+ throughout GI Inspection: Yes normal to inspection, No abdominal wall ecchymosis and No visible herniation Palpation (GI): Soft to palpation, nontender, no guarding, not rigid and No hepatosplenomegaly present Auscultation: normoactive bowel sounds General: Yes no CVA tenderness Back/Spine/Pelvis Back: no CVA tenderness and No back tenderness Cervical Spine: cervical ROM normal Thoracic/Lumbar Spine: thoracic and lumbar spine normal to inspection, straight leg raise negative bilaterally, No thoraco-lumbar ROM limited and No lumbar spinal tenderness Skin Lesions: no lesions Rashes: no rashes Wounds: no wounds Neuro General: oriented to person, oriented to place, patient oriented x3, CN's II-XI intact bilaterally and No confusion Cranial nerves: Yes Equal, round and reactive pupils present and Yes Normal accommodation reflex present Cognition (Neuro): normal cognition Speech: No Abnormal speech present Gait exam (Neuro): Normal gait present Motor exam (neuro): 5/5 motor strength present throughout Extrem Right upper extremity: full ROM; no cyanosis Left upper extremity: full ROM; no cyanosis Right lower extremity: no edema Left lower extremity: no edema Psych Appearance: grossly normal Mental Status: mental status grossly normal Affect: normal affect Attitude: cooperative Thought process: Normal thought process present Coding Level of Care Code Est Pt Prev Care 40-64y(43001) Diagnoses Annual physical exam Z00.00 Mixed hyperlipidemia E78.2 Hyperlipidemia type: mixed hyperlipidemia Class 1 obesity E66.811 Carcinoma of right kidney C64.1 Laterality: right Additional Codes SHERRON-7 Assessment Billing - SHERRON-7 Assessment Tool: SHERRON-7 Assessment 95045 ([id number]) PHQ-9 - 27007 - PHQ-9 Billing: Yes ([id number]) Assessment & Plan Assessment & Plan (1) Annual physical exam: Code(s): Z00.00 - Encounter for general adult medical examination without abnormal findings Category: Medical Plan: As per HPI (2) HLD (hyperlipidemia): Code(s): E78.5 - Hyperlipidemia, unspecified Category: Medical Qualifiers: Hyperlipidemia type: mixed hyperlipidemia Qualified Code(s): E78.2 - Mixed hyperlipidemia Plan: Patient is adherent to the use of her cholesterol medication. Will continue to follow lipid panel with goal LDL to be below 130 (3) Class 1 obesity: Code(s): E66.811 - Obesity, class 1 Category: Medical Plan: Patient does understand her BMI is over 30 and has had a lot of trouble losing weight. She is not too physically active though has been making changes in her diet and still has not lost much weight. She will like to try a GLP 1 to help her lose weight and to help her with her comorbidity of hypercholesterolemia. (4) Renal carcinoma: Code(s): C64.9 - Malignant neoplasm of unspecified kidney, except renal pelvis Category: Medical Qualifiers: Laterality: right Qualified Code(s): C64.1 - Malignant neoplasm of right kidney, except renal pelvis Plan: Patient has a history of renal cell carcinoma. She has undergone cryotherapy treatment. Most recent MRI of abdomen done in 11/2023 showing-->Posttreatment changes in the right lower pole of the kidney without findings to suggest residual or recurrent disease Medications: New semaglutide (weight loss) (Yoel) administer weeks 1 through 4 of therapy 0.25 mg (0.5 mL) subcut QWEEK 4 weeks 2 mL 0RF E66.811 - Obesity, class 1, E78.2 - Mixed hyperlipidemia Refilled atorvastatin 20 mg PO DAILY 90 days 90 tabs 2RF E78.2 - Mixed hyperlipidemia
[2024-09-23 15:15] VITALS: BP 148/94; PULSE 100; O2SAT 97; BMI 34.2
== END 2024-09-23 15:52 | disposition home or self-care (01) ==
PROVIDERS: PCP Physician Assistant; Visit Provider Physician Assistant
DX: Z00.00 Encounter for general adult medical examination without abnormal findings (principal); C64.1 Malignant neoplasm of right kidney, except renal pelvis; E66.811 Obesity, class 1; Z68.34 Body mass index [BMI] 34.0-34.9, adult; E78.2 Mixed hyperlipidemia

== ENCOUNTER → 2024-09-23 14:53 | Outpatient (BNVA) | payer OTHER, SELFPAY | PROVIDERS: PCP Physician Assistant; Visit Provider Physician Assistant | DX: Z00.00 Encounter for general adult medical examination without abnormal findings (principal); E78.2 Mixed hyperlipidemia; E66.811 Obesity, class 1; Z68.34 Body mass index [BMI] 34.0-34.9, adult; C64.1 Malignant neoplasm of right kidney, except renal pelvis | CPT/HCPCS: 96127 ==

== ENCOUNTER 2024-11-01 10:15 | Outpatient (REF) | payer OTHER, SELFPAY ==
[2024-11-01 11:36] LABS: Alanine Aminotransferase 43 U/L (0-31); Albumin Level 4.4 g/dL (3.5-5.0); Alkaline Phosphatase 63 U/L (39-117); Anion Gap 11 (12-20); Aspartate Amino Transferase 23 U/L (5-31); Bilirubin Total 0.7 mg/dL (0.0-1.0); Blood Urea Nitrogen 21 mg/dL (9-16); Calcium 9.5 mg/dL (8.4-10.2); Carbon Dioxide 27 mmol/L (22-29); Chloride 107 mmol/L (96-108); Cholesterol 278 mg/dL (<200); Estimated Glomerular Filt Rate > 60; Glucose Fasting 100 mg/dL (60-99); HDL Cholesterol 50 mg/dL (>40); LDL Cholesterol Calculated 200 mg/dL (<100); Potassium 4.2 mmol/L (3.3-5.1); Sodium 141 mmol/L (135-145); Total Protein 7.4 g/dL (6.5-8.0); Triglycerides 140 mg/dL (<150)
== END 2024-11-01 10:16 | disposition home or self-care (01) ==
LOC: HO.LAB 10:15
PROVIDERS: PCP Physician Assistant; Visit Provider Physician Assistant
DX: E78.2 Mixed hyperlipidemia (principal); Z13.1 Encounter for screening for diabetes mellitus
CPT/HCPCS: 36415; 80053; 80061

== ENCOUNTER 2024-11-10 10:55 | Outpatient (AMB) | payer OTHER, SELFPAY ==
[2024-11-10 11:01] VITALS: BP 122/86; PULSE 106; O2SAT 97; BMI 33.7
--- NOTE | 2024-11-10 11:01 | A.OFFPC_ITS ---
Vital Signs 11/10/24 11:01 Height 5 ft 4 in Weight 196 lb 4 oz BMI 33.7 BP 122/86 Blood Pressure Location Lt brachial Position Sitting Pulse 106 H Pulse Source Pulse Oximeter Pulse Oximetry (%) 97 Oxygen Delivery Method Room Air Intake Visit Reasons: f/u weight check Skip Miner Required: No Accompanied by: Self / Same As Patient Allergies Seasonal Allergies Allergy (Mild, Verified 11/10/24 11:11) watery eyes, runny nose Medication List - Last Reconciled 11/10/24 by Victor M Christensen PA-C atorvastatin 20 mg PO DAILY 90 days semaglutide (weight loss) (Wegovy) 0.25 mg (0.5 mL) subcut QWEEK 4 weeks semaglutide (weight loss) (Wegovy) 0.5 mg (0.5 mL) subcut QWEEK 4 weeks Tobacco use date assessed: 11/10/24 Dental Screening Dental Screen Date: 11/10/24 Did you have a dental visit in the last 12 months?: Yes Did you have a dental problem in the last 6 months where you did not have access to dental care?: No Was dental information given to patient?: Patient has dentist HPI f/u weight check HPI Details Patient is a 53 -year-old female here today for a follow-up visit. ? Patient has a past medical history significant obesity carcinoma of the right kidney, hypercholesterolemia, vitamin-D deficiency. .. .. Obesity: Patient has been implementing lifestyle and dietary modifications as a lost a few lb. She has changed her work schedule from working 3rd shift the 2nd shift. She feels a bit better. Unfortunately her insurance did not cover GLP 1 Phentermine though had side effects.. She is interested in starting a GLP 1 to help her lose weight .. Hyperlipidemia: Most recent lipid panel showing very elevated total cholesterol and LDL. She reported at that time not being adherent to use of her statin therapy. She has been more adherent to using atorvastatin daily more recently [facility] Medical History Perineal abscess Abscess (01/10/23) Chronic back pain History of renal cell cancer High cholesterol Surgical History History of kidney surgery History of colonoscopy Incarcerated hernia H/O hernia repair History of tubal ligation Family History Father Renal cyst Hypertension Mother Rectal cancer Sister Lesion of uterus Social History Household Members: None Housing: Condominium Alcohol intake: never Patient Tobacco Use Status: Never used Tobacco Tobacco use type: Cigarette e-Cigarette/Vaping Use: Never Used Second Hand Smoke Exposure: No service: No Current occupational status: employed Current occupation: [employer] Cognitive needs: No Hearing needs: No Vision needs: No Female Reproductive History Menstrual Age of Menarche: 13 Questionnaire PHQ-9 Over the last 2 weeks, how often have you been bothered by any of the following problems? 1. Little interest or pleasure in doing things: not at all 2. Feeling down, depressed, or hopeless: not at all 3. Trouble falling or staying asleep, or sleeping too much: not at all 4. Feeling tired or having little energy: not at all 5. Poor appetite or overeating: not at all 6. Feeling bad about yourself - or that you are a failure or have let yourself or your family down: not at all 7. Trouble concentrating on things, such as reading the newspaper or watching television: not at all 8. Moving or speaking so slowly that other people could have noticed. Or the opposite - being so fidgety or restless that you have been moving around a lot more than usual: not at all 9. Thoughts that you would be better off or of hurting yourself in some way: not at all Total score: 0 Depression Screening Interpretation: Negative Depression Screening Done: Yes 88511 - PHQ-9 Billing: Yes Source: Developed by Drs. Sebas Cowan, Martita Winter, Vikash Oh and colleagues, with an educational toby from [employer]. Thrive Questionnaire Date Thrive assessed: 11/10/24 I am a: Patient What is your living situation today?: I have a steady place to live Within the past 12 months, did the food you bought not last and you didn't have the money to get more?: Never true Within the past 12 months, did you worry whether your food would run out before you got money to buy more?: Never true Do you have trouble paying for medicines?: No Do you have trouble getting transportation to medical appointments?: No Do you have trouble paying your heating and electricity bill?: No Do you have trouble taking care of your child, family member or friend?: No Do you have trouble with day-to-day activities such as bathing, preparing meals, shopping, managing finances, etc.?: No Are you currently unemployed and looking for a job?: No Are you interested in more education?: No Please select the resources that you would like help with: None Currently or been in a relationship where the following occur: No concerns reported THRIVE Score: 0 AUDIT C Alcohol Use Questionnaire (AUDIT-C) 1. How often do you have a drink containing alcohol?: Never 3. How often do you have six or more drinks on one occasion?: Never Total Score: 0 Score Reviewed/Action Taken: Yes SHERRON-7 AMB Questionnaire SHERRON-7 Date SHERRON - 7 assessed: 11/10/24 Feeling nervous, anxious, or on edge: 0 = Not at all Not being able to stop or control worryin = Not at all Worrying too much about different things: 0 = Not at all Trouble relaxin = Not at all Being so restless that it is hard to sit still: 0 = Not at all Becoming easily annoyed or irritable: 0 = Not at all Feeling afraid as if something awful might happen: 0 = Not at all Total SHERRON-7 score (0-4 normal; 5-9 mild; 10-14 moderate; 15-21 severe): 0 Source: Developed by Drs. Sebas Cowan, Martita Winter, Vikash Oh and colleagues, with an educational toby from [employer]. SHERRON-7 Assessment Billing SHERRON-7 Assessment Tool: SHERRON-7 Assessment 44192 Review of Systems Const Denies headache(s) Eyes Denies loss of vision ENT Denies vertigo, Denies dizziness, Denies headache(s) and Denies sore throat Card Denies chest pain, Denies leg edema and Denies lightheadedness Resp Denies cough, Denies hemoptysis and Denies wheezing GI Denies abdominal pain, Denies melena, Denies constipation, Denies diarrhea and Denies vomiting Denies urinary frequency, Denies dysuria and Denies urinary urgency Musc Denies arthralgias, Denies joint swelling, Denies numbness and Denies tingling Neuro Denies Abnormal speech present, Denies behavioral changes, Denies vertigo, Denies dizziness, Denies headache(s), Denies loss of vision, Denies memory loss, Denies numbness and Denies tingling Psych Denies anxiety, Denies behavioral changes, Denies depression, Denies memory loss and Denies panic attacks Wes/Lymph Denies easy bleeding and Denies easy bruising Aller/Immun Denies wheezing Physical exam (Primary Care) Vital Signs: Last Vital Signs Pulse 106 H 11/10/24 11:01 BP 122/86 11/10/24 11:01 Pulse Ox 97 11/10/24 11:01 Oxygen Delivery Method Room Air 11/10/24 11:01 BMI result Body Mass Index 33.7 BMI Assessment/Plan discussion: High BMI High, discussed plan: lifestyle, weight reduction, dietary and physical activity Tobacco/Smoking Status: Tobacco use Status Tobacco use date assessed 11/10/24 11/10/24 11:03 Patient Tobacco Use Status Never used Tobacco 11/10/24 11:03 Tobacco use type Cigarette 11/10/24 11:03 e-Cigarette/Vaping Use Never Used 11/10/24 11:03 PHQ-9: PHQ-9 Score PHQ-9: Total score 0 11/10/24 11:03 Depression Screening Interpretation: Negative Thrive Assessment: Date of Thrive Assessment Date Thrive assessed 11/10/24 11/10/24 11:03 Currently or been in a relationship where the following occur: No concerns reported Const General: healthy appearing, no acute distress, alert and awake Nutritional Appearance: well nourished Orientation/consciousness: oriented to person, oriented to place and oriented to time HENMT Ears: TM's normal bilaterally General nose exam: Normal nasal mucous membranes and turbinates present Eyes Conjunctivae: conjunctivae normal Sclerae: sclerae normal Pupils: Equal, round and reactive pupils present Neck Neck: Yes no lymphadenopathy and Yes no JVD Thyroid: Thyroid normal Carotids: no bruits Resp Effort & Inspection: normal respiratory effort and not tachypneic Auscultation: no crackles, no rales, no rhonchi and no wheezes Cardio Rate: regular rate Rhythm: regular rhythm Heart sounds: no murmurs and normal S1 and S2 GI Palpation (GI): Soft to palpation, nontender, no hepatomegaly and no splenomegaly Auscultation: normal bowel sounds Skin General skin exam: no rashes or lesions noted and dry skin Neuro General: oriented to person, oriented to place and oriented to time Cranial nerves: Yes Equal, round and reactive pupils present Speech: No Abnormal speech present Gait exam (Neuro): Normal gait present Motor exam (neuro): no tremor noted Extrem Right upper extremity: full ROM Left upper extremity: full ROM Right lower extremity: full ROM; no edema Left lower extremity: full ROM; no edema Psych Mental Status: mental status grossly normal Speech and movement: Normal speech and movement present Affect: normal affect Attitude: cooperative Thought process: Normal thought process present Office Procedures Flu Questionnaire Does the patient have a severe egg allergy?: No Immunizations Fluarix Triv [id number] (PF) 45 mcg (15 mcg x 3)/0.5 mL IM syringe Performing Provider: Victor M Christensen PA-C [facility] Documented (not given) by: DELIO Mon on 11/10/24 11:03 Reason Not Given: Patient Refused Coding Level of Care Code Est Pt Level 3 (58340) Diagnoses Class 1 obesity E66.811 Mixed hyperlipidemia E78.2 Hyperlipidemia type: mixed hyperlipidemia Additional Codes SHERRON-7 Assessment Billing - SHERRON-7 Assessment Tool: SHERRON-7 Assessment 86384 ([id number]) PHQ-9 - 42097 - PHQ-9 Billing: Yes ([id number]) Assessment & Plan Assessment & Plan (1) Class 1 obesity: Code(s): E66.811 - Obesity, class 1 Category: Medical Plan: Patient does understand her BMI is over 30 and has been working on lifestyle and dietary modifications to reduce her weight. Unfortunately GLP 1 cm not been covered through her insurance. She would like to hold off on weight loss medication for now and continue working on lifestyle modifications. (2) HLD (hyperlipidemia): Code(s): E78.5 - Hyperlipidemia, unspecified Category: Medical Qualifiers: Hyperlipidemia type: mixed hyperlipidemia Qualified Code(s): E78.2 - Mixed hyperlipidemia Plan: Patient's most recent lipid panel showing very elevated total cholesterol and LDL. She was not consistent with her atorvastatin use at time. She is now more adherent to the medication and would like to recheck her lipids before annual physical this year. Goal LDL is to be below 130 Orders: Orders Influenza [id number] Immunization Today Z23 - Encounter for immunization Medications: Discontinued semaglutide (weight loss) (Wegovy) administer weeks 1 through 4 of therapy Discontinued Reason: Doctor's Order 0.25 mg (0.5 mL) subcut QWEEK 4 weeks 2 mL 0RF E66.811 - Obesity, class 1, E78.2 - Mixed hyperlipidemia semaglutide (weight loss) (Wegovy) administer weeks 5 through 8 of therapy Discontinued Reason: Doctor's Order 0.5 mg (0.5 mL) subcut QWEEK 4 weeks 2 mL 0RF E66.811 - Obesity, class 1
== END 2024-11-10 11:42 | disposition home or self-care (01) ==
PROVIDERS: PCP Physician Assistant; Visit Provider Physician Assistant
DX: E78.2 Mixed hyperlipidemia (principal); E66.811 Obesity, class 1; Z68.33 Body mass index [BMI] 33.0-33.9, adult

== ENCOUNTER → 2024-11-10 10:55 | Outpatient (BNVA) | payer OTHER, SELFPAY | PROVIDERS: PCP Physician Assistant; Visit Provider Physician Assistant | DX: E66.811 Obesity, class 1 (principal); Z68.33 Body mass index [BMI] 33.0-33.9, adult; E78.2 Mixed hyperlipidemia; Z28.21 Immunization not carried out because of patient refusal | CPT/HCPCS: 96127 ==

== ENCOUNTER 2025-03-18 09:11 | Outpatient (AMB) | payer OTHER, SELFPAY ==
[2025-03-18 09:39] VITALS: BP 110/82; PULSE 101; TEMP 36.1; O2SAT 97; BMI 33.9
--- NOTE | 2025-03-18 09:39 | MHC.PC.OV ---
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 ? Patient has a past medical history significant obesity carcinoma of the right kidney, hypercholesterolemia, vitamin-D deficiency. .. .. Obesity: Patient has been implementing lifestyle and dietary modifications in his has been not able to lose much weight. She is feeling a little discouraged about this. . She has changed her work schedule from working 3rd shift the 2nd shift. She feels a bit better. We have tried phentermine has not oral agent to help reduce appetite though had side effects of heart palpitations.. We have tried to prescribe her GLP once in the past though have not insurance coverage. She is interested in starting a GLP 1 to help her lose weight .. Hyperlipidemia: Most recent lipid panel showing very elevated total cholesterol and LDL. She reported at that time not being adherent to use of her statin therapy. She has been more adherent to using atorvastatin daily more recently Laboratory Tests 10/09/23 11/01/24 07:10 10:33 Creatinine 0.76 Fasting Glucose 101 H 100 H AST 34 H 23 ALT 61 H 43 H Cholesterol 278 H LDL Cholesterol, C alc 200 H PFSH Medical History Perineal abscess Abscess (01/10/23) Chronic back pain History of renal cell cancer High cholesterol Surgical History History of kidney surgery History of colonoscopy Incarcerated hernia H/O hernia repair History of tubal ligation Family History Father Renal cyst Hypertension Mother Rectal cancer Sister Lesion of uterus Social History Household Members: None Housing: Condominium Alcohol intake: never Patient Tobacco Use Status: Never used Tobacco Tobacco use type: Cigarette e-Cigarette/Vaping Use: Never Used Second Hand Smoke Exposure: No service: No Current occupational status: employed Current occupation: [employer]- [employer] Cognitive needs: No Hearing needs: No Vision needs: No Female Reproductive History Menstrual Age of Menarche: 13 Questionnaire Thrive Questionnaire Date Thrive assessed: 11/10/24 SHERRON-7 AMB Questionnaire SHERRON-7 Date SHERRON - 7 assessed: 11/10/24 Source: Developed by Drs. Sebas Cowan, Martita Winter, Vikash Oh and colleagues, with an educational toby from [employer]. Review of Systems Const Denies headache(s) Eyes Denies loss of vision ENT Denies vertigo, Denies dizziness, Denies headache(s) and Denies sore throat Card Denies chest pain, Denies leg edema and Denies lightheadedness Resp Denies cough, Denies hemoptysis and Denies wheezing GI Denies abdominal pain, Denies melena, Denies constipation, Denies diarrhea and Denies vomiting Denies urinary frequency, Denies dysuria and Denies urinary urgency Musc Denies arthralgias, Denies joint swelling, Denies numbness and Denies tingling Neuro Denies Abnormal speech present, Denies behavioral changes, Denies vertigo, Denies dizziness, Denies headache(s), Denies loss of vision, Denies memory loss, Denies numbness and Denies tingling Psych Denies anxiety, Denies behavioral changes, Denies depression, Denies memory loss and Denies panic attacks Wes/Lymph Denies easy bleeding and Denies easy bruising Aller/Immun Denies wheezing Physical exam (Primary Care) Vital Signs: Last Vital Signs Temp 96.9 F 03/18/25 09:39 Pulse 101 H 03/18/25 09:39 BP 110/82 03/18/25 09:39 Pulse Ox 97 03/18/25 09:39 Oxygen Delivery Method Room Air 03/18/25 09:39 BMI result Body Mass Index 33.9 BMI Assessment/Plan discussion: High BMI High, discussed plan: lifestyle, weight reduction, dietary and physical activity Tobacco/Smoking Status: Tobacco use Status Tobacco use date assessed 11/10/24 03/18/25 09:40 Patient Tobacco Use Status Never used Tobacco 03/18/25 09:40 Tobacco use type Cigarette 03/18/25 09:40 e-Cigarette/Vaping Use Never Used 03/18/25 09:40 Thrive Assessment: Date of Thrive Assessment Date Thrive assessed 11/10/24 03/18/25 09:40 Const General: healthy appearing, no acute distress, alert and awake Nutritional Appearance: well nourished Orientation/consciousness: oriented to person, oriented to place and oriented to time HENMT Ears: TM's normal bilaterally General nose exam: Normal nasal mucous membranes and turbinates present Eyes Conjunctivae: conjunctivae normal Sclerae: sclerae normal Pupils: Equal, round and reactive pupils present Neck Neck: Yes no lymphadenopathy and Yes no JVD Thyroid: Thyroid normal Carotids: no bruits Resp Effort & Inspection: normal respiratory effort and not tachypneic Auscultation: no crackles, no rales, no rhonchi and no wheezes Cardio Rate: regular rate Rhythm: regular rhythm Heart sounds: no murmurs and normal S1 and S2 GI Palpation (GI): Soft to palpation, nontender, no hepatomegaly and no splenomegaly Auscultation: normal bowel sounds Skin General skin exam: no rashes or lesions noted and dry skin Neuro General: oriented to person, oriented to place and oriented to time Cranial nerves: Yes Equal, round and reactive pupils present Speech: No Abnormal speech present Gait exam (Neuro): Normal gait present Motor exam (neuro): no tremor noted Extrem Right upper extremity: full ROM Left upper extremity: full ROM Right lower extremity: full ROM; no edema Left lower extremity: full ROM; no edema Psych Mental Status: mental status grossly normal Speech and movement: Normal speech and movement present Affect: normal affect Attitude: cooperative Thought process: Normal thought process present Coding Level of Care Code Est Pt Level 3 (73849) Diagnoses Class 1 obesity E66.811 Mixed hyperlipidemia E78.2 Hyperlipidemia type: mixed hyperlipidemia Assessment & Plan Assessment & Plan (1) Class 1 obesity: Code(s): E66.811 - Obesity, class 1 Category: Medical Plan: Patient does understand her BMI is over 30 and has been working on lifestyle and dietary modifications to reduce her weight. Unfortunately Ozempic not been covered through her insurance. We have tried phentermine though had side effect of heart palpitations. Will try alternative GLP 1 to his appetite to see if we can help her lose weight. (2) HLD (hyperlipidemia): Code(s): E78.5 - Hyperlipidemia, unspecified Category: Medical Qualifiers: Hyperlipidemia type: mixed hyperlipidemia Qualified Code(s): E78.2 - Mixed hyperlipidemia Plan: Patient's most recent lipid panel showing very elevated total cholesterol and LDL. She was not consistent with her atorvastatin use at time. She is now more adherent to the medication and would like to recheck her lipids before annual physical this year. Goal LDL is to be below 130 Medications: New tirzepatide (weight loss) (Zepbound) for 4 weeks 2.5 mg (0.5 mL) subcut QWEEK 2 mL 0RF 4 weeks E66.811 - Obesity, class 1
== END 2025-03-18 10:15 | disposition home or self-care (01) ==
LOC: HO.HMCH 09:11
PROVIDERS: PCP Physician Assistant; Visit Provider Physician Assistant
DX: E78.2 Mixed hyperlipidemia (principal); E66.811 Obesity, class 1; Z68.33 Body mass index [BMI] 33.0-33.9, adult

== ENCOUNTER → 2025-03-18 09:11 | Outpatient (BNVA) | payer OTHER, SELFPAY | PROVIDERS: PCP Physician Assistant; Visit Provider Physician Assistant ==

== ENCOUNTER 2025-05-05 10:43 | Outpatient (AMB) | payer OTHER, SELFPAY ==
--- NOTE | 2025-05-05 10:52 | A.OFFPC_ITS ---
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 Accompanied by: Self / Same As Patient Allergies Seasonal Allergies Allergy (Mild, Verified 05/05/25 11:15) watery eyes, runny nose phentermine Adverse Reaction (Intermediate, Verified 05/05/25 11:15) heart palpatations Medication List - Last Reconciled 05/05/25 by Victor M Christensen PA-C atorvastatin 20 mg PO DAILY 90 days Tobacco use date assessed: 11/10/24 Dental Screening Dental Screen Date: 05/05/25 Did you have a dental visit in the last 12 months?: Yes Did you have a dental problem in the last 6 months where you did not have access to dental care?: No Was dental information given to patient?: Patient has dentist HPI 6 week f/u HPI0 Details Patient is a 54-year-old female here today for a follow-up visit. ? Patient has a past medical history significant obesity carcinoma of the right kidney, hypercholesterolemia, vitamin-D deficiency. .. .. Class 1 Obesity: Patient has been implementing lifestyle and dietary modifications in his has been not able to lose much weight. She is feeling a little discouraged about this. Patient has been using protein shakes that have helped her a bit managing her appetite. She is interested in starting a GLP 1 to help her with her weight. [facility] insurance has not covered GLP ones. Will refer to weight food management aide here in [place]. She feels a bit better. We have tried phentermine has not oral agent to help reduce appetite though had side effects of heart palpitations.. .. Hyperlipidemia: Most recent lipid panel showing very elevated total cholesterol and LDL. She reported at that time not being adherent to use of her statin therapy. She has been more adherent to using atorvastatin daily more recently/. History of tubular adenoma polyp: The patient has a history of tubular adenoma, with three polyps identified during a colonoscopy in 2021. The polyps were precancerous, necessitating a follow-up colonoscopy, which has been scheduled. [facility] Medical History Perineal abscess Abscess (01/10/23) Chronic back pain History of renal cell cancer High cholesterol Surgical History History of kidney surgery History of colonoscopy Incarcerated hernia H/O hernia repair History of tubal ligation Family History Father Renal cyst Hypertension Mother Rectal cancer Sister Lesion of uterus Social History Household Members: None Housing: Condominium Alcohol intake: never Patient Tobacco Use Status: Never used Tobacco Tobacco use type: Cigarette e-Cigarette/Vaping Use: Never Used Second Hand Smoke Exposure: No service: No Current occupational status: employed Current occupation: [employer] Cognitive needs: No Hearing needs: No Vision needs: No Female Reproductive History Menstrual Age of Menarche: 13 Questionnaire PHQ-9 Over the last 2 weeks, how often have you been bothered by any of the following problems? 1. Little interest or pleasure in doing things: not at all 2. Feeling down, depressed, or hopeless: not at all 3. Trouble falling or staying asleep, or sleeping too much: not at all 4. Feeling tired or having little energy: not at all 5. Poor appetite or overeating: not at all 6. Feeling bad about yourself - or that you are a failure or have let yourself or your family down: not at all 7. Trouble concentrating on things, such as reading the newspaper or watching television: not at all 8. Moving or speaking so slowly that other people could have noticed. Or the opposite - being so fidgety or restless that you have been moving around a lot more than usual: not at all 9. Thoughts that you would be better off or of hurting yourself in some way: not at all Total score: 0 Depression Screening Interpretation: Negative Depression Screening Done: Yes 63068 - PHQ-9 Billing: Yes Source: Developed by Drs. Sebas Cowan, Martita Winter, Vikash Oh and colleagues, with an educational toby from [employer]. Thrive Questionnaire Date Thrive assessed: 05/05/25 SHERRON-7 AMB Questionnaire SHERRON-7 Date SHERRON - 7 assessed: 05/05/25 Source: Developed by Drs. Sebas Cowan, Martita Winter, Vikash Oh and colleagues, with an educational toby from [employer]. Review of Systems Const Denies headache(s) Eyes Denies loss of vision ENT Denies vertigo, Denies dizziness, Denies headache(s) and Denies sore throat Card Denies chest pain, Denies leg edema and Denies lightheadedness Resp Denies cough, Denies hemoptysis and Denies wheezing GI Denies abdominal pain, Denies melena, Denies constipation, Denies diarrhea and Denies vomiting Denies urinary frequency, Denies dysuria and Denies urinary urgency Musc Denies arthralgias, Denies joint swelling, Denies numbness and Denies tingling Neuro Denies Abnormal speech present, Denies behavioral changes, Denies vertigo, Denies dizziness, Denies headache(s), Denies loss of vision, Denies memory loss, Denies numbness and Denies tingling Psych Denies anxiety, Denies behavioral changes, Denies depression, Denies memory loss and Denies panic attacks Wes/Lymph Denies easy bleeding and Denies easy bruising Aller/Immun Denies wheezing Physical exam (Primary Care) Vital Signs: Last Vital Signs Temp 97.5 F 05/05/25 10:54 Pulse 100 05/05/25 10:54 BP 118/74 05/05/25 10:54 Pulse Ox 97 05/05/25 10:54 Oxygen Delivery Method Room Air 05/05/25 10:54 BMI result Body Mass Index 33.5 BMI Assessment/Plan discussion: High BMI High, discussed plan: lifestyle, weight reduction, dietary and physical activity Tobacco/Smoking Status: Tobacco use Status Tobacco use date assessed 11/10/24 05/05/25 10:59 Patient Tobacco Use Status Never used Tobacco 05/05/25 10:59 Tobacco use type Cigarette 05/05/25 10:59 e-Cigarette/Vaping Use Never Used 05/05/25 10:59 PHQ-9: PHQ-9 Score PHQ-9: Total score 0 05/05/25 10:59 Depression Screening Interpretation: Negative Thrive Assessment: Date of Thrive Assessment Date Thrive assessed 05/05/25 05/05/25 10:59 Const General: healthy appearing, no acute distress, alert and awake Nutritional Appearance: well nourished Orientation/consciousness: oriented to person, oriented to place and oriented to time HENMT Ears: TM's normal bilaterally General nose exam: Normal nasal mucous membranes and turbinates present Eyes Conjunctivae: conjunctivae normal Sclerae: sclerae normal Pupils: Equal, round and reactive pupils present Neck Neck: Yes no lymphadenopathy and Yes no JVD Thyroid: Thyroid normal Carotids: no bruits Resp Effort & Inspection: normal respiratory effort and not tachypneic Auscultation: no crackles, no rales, no rhonchi and no wheezes Cardio Rate: regular rate Rhythm: regular rhythm Heart sounds: no murmurs and normal S1 and S2 GI Palpation (GI): Soft to palpation, nontender, no hepatomegaly and no splenomegaly Auscultation: normal bowel sounds Skin General skin exam: no rashes or lesions noted and dry skin Neuro General: oriented to person, oriented to place and oriented to time Cranial nerves: Yes Equal, round and reactive pupils present Speech: No Abnormal speech present Gait exam (Neuro): Normal gait present Motor exam (neuro): no tremor noted Extrem Right upper extremity: full ROM Left upper extremity: full ROM Right lower extremity: full ROM; no edema Left lower extremity: full ROM; no edema Psych Mental Status: mental status grossly normal Speech and movement: Normal speech and movement present Affect: normal affect Attitude: cooperative Thought process: Normal thought process present Coding Level of Care Code Est Pt Level 4 (31406) Diagnoses Class 1 obesity E66.811 Mixed hyperlipidemia E78.2 Hyperlipidemia type: mixed hyperlipidemia Additional Codes PHQ-9 - 84639 - PHQ-9 Billing: Yes ([id number]) Assessment & Plan Assessment & Plan (1) Class 1 obesity: Code(s): E66.811 - Obesity, class 1 Category: Medical Plan: Patient does understand her BMI is over 30 and has been working on lifestyle and dietary modifications to reduce her weight. She has recently tried protein meal replacement shakes which have been able to reduce her appetite a bit.. Unfortunately Ozempic not been covered through her insurance. We have tried phentermine though had side effect of heart palpitations. She is willing to be referred to weight management specialty to reconsider GLP 1 injections for weight loss. (2) HLD (hyperlipidemia): Code(s): E78.5 - Hyperlipidemia, unspecified Category: Medical Qualifiers: Hyperlipidemia type: mixed hyperlipidemia Qualified Code(s): E78.2 - Mixed hyperlipidemia Plan: The patient has hyperlipidemia with a total cholesterol level of 278 mg/dL and LDL cholesterol at 227 mg/dL. The plan includes resuming cholesterol medication to manage the lipid levels and prevent cardiovascular complications. Goal LDL is to be below 130 Orders: Referrals Gastroenterology Referral Z80.0 - Family history of malignant neoplasm of digestive organs Medical Weight Management Referral E66.811 - Obesity, class 1
[2025-05-05 10:54] VITALS: BP 118/74; PULSE 100; TEMP 36.4; O2SAT 97; BMI 33.5
== END 2025-05-05 11:25 | disposition home or self-care (01) ==
LOC: HO.HMCH 10:43
PROVIDERS: PCP Physician Assistant; Visit Provider Physician Assistant
DX: E78.2 Mixed hyperlipidemia (principal); E66.811 Obesity, class 1; Z68.33 Body mass index [BMI] 33.0-33.9, adult

== ENCOUNTER → 2025-05-05 10:43 | Outpatient (BNVA) | payer OTHER, SELFPAY | PROVIDERS: PCP Physician Assistant; Visit Provider Physician Assistant | DX: E66.811 Obesity, class 1 (principal); E55.9 Vitamin D deficiency, unspecified; E78.2 Mixed hyperlipidemia; Z80.0 Family history of malignant neoplasm of digestive organs; Z68.33 Body mass index [BMI] 33.0-33.9, adult | CPT/HCPCS: 96127 ==

== ENCOUNTER 2025-09-24 11:20 | Outpatient (AMB) | payer OTHER, SELFPAY ==
[2025-09-24 11:39] VITALS: BP 128/68; PULSE 124; TEMP 36.3; O2SAT 90; BMI 33.9
--- NOTE | 2025-09-24 11:39 | MHC.PC.OV ---
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 Accompanied by: Self / Same As Patient Allergies Seasonal Allergies Allergy (Mild, Verified 09/24/25 12:05) watery eyes, runny nose phentermine Adverse Reaction (Intermediate, Verified 09/24/25 12:05) heart palpatations Medication List - Last Reconciled 09/24/25 by Victor M Christensen PA-C atorvastatin 20 mg PO DAILY 90 days Tobacco use date assessed: 11/10/24 Dental Screening Dental Screen Date: 05/05/25 Did you have a dental visit in the last 12 months?: Yes Did you have a dental problem in the last 6 months where you did not have access to dental care?: No Was dental information given to patient?: Patient has dentist HPI pe HPI Details Patient is a 54-year-old female here today for routine annual physical ? Patient has a past medical history significant obesity,carcinoma of the right kidney, hypercholesterolemia, vitamin-D deficiency. .. .. Class 1 Obesity: Patient has been implementing lifestyle and dietary modifications in his has been not able to lose much weight. She is feeling a little discouraged about this. Patient has been using protein shakes that have helped her a bit managing her appetite. She is interested in starting a GLP 1 to help her with her weight. Unfortunately insurance has not covered GLP ones. She reports she has not been able to establish care with here in [place] She feels a bit better. We have tried phentermine has not oral agent to help reduce appetite though had side effects of heart palpitations.. .. History of Right kidney carcinoma: Did have treatment with a urologist, most recent surveillance MRI testing of the abdomen showed -->Posttreatment changes in the right lower pole renal cryoablation with some intrinsically T1 bright /T2 dark nonenhancing material measuring 0.9 cm previously 2.1 cm which may some residual loculated proteinaceous/hemorrhagic fluid and sequelae of posttreatment change. No enhancing solid soft tissue to suggest residual recurrent diseas Hyperlipidemia: Most recent lipid panel showing very elevated total cholesterol and LDL. She reported at that time not being adherent to use of her statin therapy. She has been more adherent to using atorvastatin daily more recently/. History of tubular adenoma polyp: The patient has a history of tubular adenoma, with three polyps identified during a colonoscopy in 2021. The polyps were precancerous, necessitating a follow-up colonoscopy, which has been scheduled. Vaccine: UTD COVID, Need FLu vaccine PFSH Medical History Perineal abscess Abscess (01/10/23) Chronic back pain History of renal cell cancer High cholesterol Surgical History History of kidney surgery History of colonoscopy Incarcerated hernia H/O hernia repair History of tubal ligation Family History (Updated 09/24/25 @ 12:08 by Victor M Christensen PA-C) Father Renal cyst Hypertension CAD (coronary artery disease) Mother Rectal cancer Sister Lesion of uterus Social History Household Members: None Housing: Condominium Alcohol intake: never Patient Tobacco Use Status: Never used Tobacco Tobacco use type: Cigarette e-Cigarette/Vaping Use: Never Used Second Hand Smoke Exposure: No service: No Current occupational status: employed 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 1. Little interest or pleasure in doing things: not at all 2. Feeling down, depressed, or hopeless: not at all 3. Trouble falling or staying asleep, or sleeping too much: not at all 4. Feeling tired or having little energy: not at all 5. Poor appetite or overeating: not at all 6. Feeling bad about yourself - or that you are a failure or have let yourself or your family down: not at all 7. Trouble concentrating on things, such as reading the newspaper or watching television: not at all 8. Moving or speaking so slowly that other people could have noticed. Or the opposite - being so fidgety or restless that you have been moving around a lot more than usual: not at all 9. Thoughts that you would be better off or of hurting yourself in some way: not at all Total score: 0 Depression Screening Interpretation: Negative Depression Screening Done: Yes 13608 - PHQ-9 Billing: Yes Source: Developed by Drs. Sebas Cowan, Martita Winter, Vikash Oh and colleagues, with an educational toby from [employer]. Thrive Questionnaire Date Thrive assessed: 05/05/25 What is your living situation today?: I have a steady place to live THRIVE Score: 0 AUDIT C Alcohol Use Questionnaire (AUDIT-C) 1. How often do you have a drink containing alcohol?: Never 3. How often do you have six or more drinks on one occasion?: Never Total Score: 0 Score Reviewed/Action Taken: Yes SHERRON-7 AMB Questionnaire SHERRON-7 Date SHERRON - 7 assessed: 05/05/25 Feeling nervous, anxious, or on edge: 0 = Not at all Not being able to stop or control worryin = Several days Worrying too much about different things: 1 = Several days Trouble relaxin = Not at all Being so restless that it is hard to sit still: 0 = Not at all Becoming easily annoyed or irritable: 0 = Not at all Feeling afraid as if something awful might happen: 0 = Not at all Total SHERRON-7 score (0-4 normal; 5-9 mild; 10-14 moderate; 15-21 severe): 2 Source: Developed by Drs. Sebas Cowan, Martita Winter, Vikash Oh and colleagues, with an educational toby from [employer]. Review of Systems Const Denies body aches, Denies chills, Denies excessive sweating, Denies fatigue, Denies fever(s) and Denies headache(s) Eyes Denies blurry vision ENT Denies dysphagia, Denies vertigo, Denies dizziness, Denies headache(s), Denies hearing loss and Denies tinnitus Card Denies chest pain, Denies chest pain with activity, Denies syncope, Denies irregular heart rhythm and Denies dyspnea Resp Denies chest congestion, Denies cough, Denies hemoptysis, Denies dyspnea and Denies wheezing GI Denies abdominal pain, Denies melena, Denies hematochezia, Denies coffee ground emesis, Denies dysphagia, Denies diarrhea, Denies nausea and Denies vomiting Denies urinary frequency, Denies dysuria, Denies urinary hesitancy and Denies urinary urgency Musc Denies arthralgias, Denies limited range of motion, Denies muscle cramps and Denies muscle weakness Skin/Breast Denies rash and Denies skin ulcer Neuro Denies Abnormal speech present, Denies confusion, Denies vertigo, Denies dizziness, Denies syncope, Denies headache(s), Denies memory loss and Denies seizure-like activity Psych Denies anxiety, Denies confusion, Denies depression, Denies memory loss, Denies panic attacks and Denies paranoia Endo Denies excessive sweating, Denies fatigue, Denies flushing, Denies polydipsia and Denies polyuria Aller/Immun Denies wheezing Physical exam (Primary Care) Vital Signs: Last Vital Signs Temp 97.3 F 09/24/25 11:39 Pulse 124 H 09/24/25 11:39 BP 128/68 09/24/25 11:39 Pulse Ox 90 L 09/24/25 11:39 Oxygen Delivery Method Room Air 09/24/25 11:39 BMI result Body Mass Index 33.9 Tobacco/Smoking Status: Tobacco use Status Tobacco use date assessed 11/10/24 09/24/25 11:44 Patient Tobacco Use Status Never used Tobacco 09/24/25 11:44 Tobacco use type Cigarette 09/24/25 11:44 e-Cigarette/Vaping Use Never Used 09/24/25 11:44 PHQ-9: PHQ-9 Score PHQ-9: Total score 0 09/24/25 12:07 Depression Screening Interpretation: Negative Thrive Assessment: Date of Thrive Assessment Date Thrive assessed 05/05/25 09/24/25 11:44 Const General: cooperative, comfortable, no acute distress, alert and awake; No confusion Orientation/consciousness: oriented to person, oriented to place, patient oriented x3 and No confusion HENMT Head: Yes normocephalic Ears: external ears normal and TM's normal bilaterally Face and sinus: No sinus tenderness Mouth: Normal oral and palatal mucosa present and tongue normal Teeth and gingiva: dentition normal and gingiva normal Throat: Yes posterior oropharynx normal, Yes tonsils normal and Yes uvula midline Eyes Conjunctivae: conjunctivae normal Sclerae: sclerae normal Pupils: Equal, round and reactive pupils present EOM: EOMs intact bilaterally Direct Ophthalmoscopy: No no photophobia Neck Neck: Yes no lymphadenopathy, No tender and Yes no JVD Thyroid: Thyroid normal Carotids: no bruits Chest Chest palpation & inspection: no tenderness Resp Effort & Inspection: normal respiratory effort, no audible wheezes, not labored and no stridor Auscultation: no crackles, no rales, no rhonchi and no wheezes Cardio Jugular venous distension: no JVD Rate: regular rate, not bradycardic and not tachycardic Rhythm: regular rhythm Bruits: no carotid bruits Peripheral pulses: Peripheral pulses 2+ throughout GI Inspection: Yes normal to inspection, No abdominal wall ecchymosis and No visible herniation Palpation (GI): Soft to palpation, nontender, no guarding, not rigid and No hepatosplenomegaly present Auscultation: normoactive bowel sounds General: Yes no CVA tenderness Back/Spine/Pelvis Back: no CVA tenderness and No back tenderness Cervical Spine: cervical ROM normal Thoracic/Lumbar Spine: thoracic and lumbar spine normal to inspection, straight leg raise negative bilaterally, No thoraco-lumbar ROM limited and No lumbar spinal tenderness Skin Lesions: no lesions Rashes: no rashes Wounds: no wounds Neuro General: oriented to person, oriented to place, patient oriented x3, CN's II-XI intact bilaterally and No confusion Cranial nerves: Yes Equal, round and reactive pupils present and Yes Normal accommodation reflex present Cognition (Neuro): normal cognition Speech: No Abnormal speech present Gait exam (Neuro): Normal gait present Motor exam (neuro): 5/5 motor strength present throughout Extrem Right upper extremity: full ROM; no cyanosis Left upper extremity: full ROM; no cyanosis Right lower extremity: no edema Left lower extremity: no edema Psych Appearance: grossly normal Mental Status: mental status grossly normal Affect: normal affect Attitude: cooperative Thought process: Normal thought process present Coding Level of Care Code Est Pt Prev Care 40-64y(32099) Diagnoses Annual physical exam Z00.00 Class 1 obesity E66.811 Mixed hyperlipidemia E78.2 Hyperlipidemia type: mixed hyperlipidemia Carcinoma of right kidney C64.1 Laterality: right Additional Codes PHQ-9 - 68005 - PHQ-9 Billing: Yes ([id number]) Assessment & Plan Assessment & Plan (1) Annual physical exam: Code(s): Z00.00 - Encounter for general adult medical examination without abnormal findings Category: Medical Plan: As per HPI (2) Class 1 obesity: Code(s): E66.811 - Obesity, class 1 Category: Medical Plan: Patient does understand her BMI is over 30 and has been working on lifestyle and dietary modifications to reduce her weight. She has recently tried protein meal replacement shakes which have been able to reduce her appetite a bit.. Unfortunately Ozempic not been covered through her insurance. We have tried phentermine though had side effect of heart palpitations. (3) HLD (hyperlipidemia): Code(s): E78.5 - Hyperlipidemia, unspecified Category: Medical Qualifiers: Hyperlipidemia type: mixed hyperlipidemia Qualified Code(s): E78.2 - Mixed hyperlipidemia Plan: The patient has hyperlipidemia with a total cholesterol level of 278 mg/dL and LDL cholesterol at 227 mg/dL. The plan includes resuming cholesterol medication to manage the lipid levels and prevent cardiovascular complications. Goal LDL is to be below 130 (4) Renal carcinoma: Code(s): C64.9 - Malignant neoplasm of unspecified kidney, except renal pelvis Category: Medical Qualifiers: Laterality: right Qualified Code(s): C64.1 - Malignant neoplasm of right kidney, except renal pelvis Plan: Has a history of right renal carcinoma in his status post cryoablation. Most recent MRI abdomen showing no recurrence and post surgical changes.
== END 2025-09-24 12:21 | disposition home or self-care (01) ==
LOC: HO.HMCH 11:21
PROVIDERS: PCP Physician Assistant; Visit Provider Physician Assistant
DX: Z00.00 Encounter for general adult medical examination without abnormal findings (principal); E66.811 Obesity, class 1; E78.2 Mixed hyperlipidemia; C64.1 Malignant neoplasm of right kidney, except renal pelvis; Z68.33 Body mass index [BMI] 33.0-33.9, adult

== ENCOUNTER → 2025-09-24 11:20 | Outpatient (BNVA) | payer OTHER, SELFPAY | PROVIDERS: PCP Physician Assistant; Visit Provider Physician Assistant | DX: Z00.00 Encounter for general adult medical examination without abnormal findings (principal); E66.811 Obesity, class 1; E78.2 Mixed hyperlipidemia; C64.1 Malignant neoplasm of right kidney, except renal pelvis; Z68.33 Body mass index [BMI] 33.0-33.9, adult | CPT/HCPCS: 96127 ==

== ENCOUNTER 2025-09-29 09:56 | Outpatient (REF) | payer OTHER, SELFPAY ==
[2025-09-29 14:18] LABS: Hematocrit 40.0 % (37.0-47.0); Hemoglobin 13.1 g/dl (12.0-16.0); Mean Corpuscular HGB Conc 32.8 g/dl (31.0-35.0); Mean Corpuscular Hemoglobin 30.5 pg (27.0-33.0); Mean Corpuscular Volume 93.0 fL (80.0-98.0); NRBC Abs Auto 0.000 X10*3/uL (0.0-0.012); NRBC Pct Auto 0.0 /100WBC (0.0-0.2); Platelet Count 398 X10*3/uL (160-400); Red Blood Count 4.30 X10*6/uL (4.20-5.50); White Blood Count 6.9 X10*3/uL (4.8-10.8)
[2025-09-29 14:51] LABS: Alanine Aminotransferase 28 U/L (0-31); Albumin Level 4.5 g/dL (3.5-5.0); Alkaline Phosphatase 69 U/L (39-117); Anion Gap 11 (12-20); Aspartate Amino Transferase 26 U/L (5-31); Blood Urea Nitrogen 17 mg/dL (9-16); Calcium 9.1 mg/dL (8.4-10.2); Carbon Dioxide 27 mmol/L (22-29); Chloride 107 mmol/L (96-108); Cholesterol 185 mg/dL (<200); Estimated Glomerular Filt Rate > 60; HDL Cholesterol 51 mg/dL (>40); Potassium 4.1 mmol/L (3.3-5.1); Sodium 141 mmol/L (135-145); Total Protein 7.0 g/dL (6.5-8.0); Triglycerides 111 mg/dL (<150)
== END 2025-09-29 09:57 | disposition home or self-care (01) ==
LOC: HO.HMGCLDS 09:56
PROVIDERS: PCP Physician Assistant; Visit Provider Physician Assistant
DX: K59.00 Constipation, unspecified (principal); Z80.0 Family history of malignant neoplasm of digestive organs; E78.2 Mixed hyperlipidemia; Z12.11 Encounter for screening for malignant neoplasm of colon
CPT/HCPCS: 36415; 80053; 80061; 85027

== ENCOUNTER 2025-09-29 12:58 | Outpatient (AMB) | payer OTHER, SELFPAY ==
--- NOTE | 2025-09-29 13:01 | A.OFFVIS_ITS ---
Vital Signs 09/29/25 13:12 Height 5 ft 4 in Weight 197 lb BMI 33.8 BP 142/84 H Blood Pressure Location Rt brachial Position Sitting Pulse 100 Pulse Source Pulse Oximeter Pulse Oximetry (%) 98 Oxygen Delivery Method Room Air Intake Visit Reasons: Recall colo screening. [facility] 2022. 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 Intake Note: Est pt for recall colo q3 years. Last w/ Dr. Donis in 2021. CC; Pt denies any current GI sx or concerns. 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 [facility] 2022. Hx of TA.: Details: LAST VISIT Elevated LFTs Encouraged to lose weight. Food low in fat. Last enzymes improved. Continue annual labs Diverticulosis Continue high-fiber diet. List of food high in fiber given to patient. Patient was also encouraged to lose weight. I will see her in 1 year, sooner on as needed basis. Patient is agreeable to this plans and verbalizes understanding of instructions. She was given the opportunity to ask questions and all questions answered. TODAY'S VISIT Patient is here today for follow-up and to discuss going for colonoscopy. Patient reports that she has been doing fairly well. Reports occasional constipation. Denies melena, hematochezia, unintentional weight loss or ribbon like stools. Patient denies any dyspepsia, dysphagia or odynophagia. Patient denies any acid reflux currently is not taking any PPI or H2 blockers. Patient had no issues with anesthesia in the past. No history of sleep apnea. She is not on any anticoagulation medication. Patient has a family history of CRC. Patient denies any cardiac or respiratory symptoms. [facility] Medical History Perineal abscess Abscess (01/10/23) Chronic back pain History of renal cell cancer High cholesterol Surgical History History of kidney surgery History of colonoscopy Incarcerated hernia H/O hernia repair History of tubal ligation Family History Father Renal cyst Hypertension CAD (coronary artery disease) Mother Rectal cancer Sister Lesion of uterus Social History Household Members: None Housing: Condominium Alcohol intake: never Patient Tobacco Use Status: Never used Tobacco Tobacco use type: Cigarette e-Cigarette/Vaping Use: Never Used Second Hand Smoke Exposure: No service: No Current occupational status: employed 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- [employer] Cognitive needs: No Hearing needs: No Vision needs: No Female Reproductive History Menstrual Age of Menarche: 13 Review of Systems Const Denies weight gain and Denies weight loss ENT Reports no additional complaints, Denies dysphagia and Denies odynophagia Card Reports no additional complaints Resp Reports no additional complaints GI Denies abdominal pain, Denies belching, Denies melena, Denies bloating, Denies change in bowel habits, Denies dysphagia, Denies excessive flatus, Denies dyspepsia, Denies heartburn, Denies diarrhea, Denies loose stools, Denies nausea, Denies odynophagia and Denies vomiting Musc Reports no additional complaints Neuro Reports no additional complaints Psych Reports no additional complaints Endo Reports no additional complaints Physical Exam Vital Signs: Last Vital Signs Pulse 100 09/29/25 13:12 BP 142/84 H 09/29/25 13:12 Pulse Ox 98 09/29/25 13:12 Oxygen Delivery Method Room Air 09/29/25 13:12 BMI result Body Mass Index 33.8 Const General: healthy appearing, no acute distress and well developed Nutritional Appearance: overweight Orientation/consciousness: patient oriented x3 Resp Effort & Inspection: normal respiratory effort, able to speak in complete sentences, no tracheal deviation and symmetric chest movement Auscultation: clear to auscultation bilaterally Cardio Rate: regular rate GI Inspection: Yes normal to inspection, No distended and Yes obesity Palpation (GI): Soft to palpation, not firm, nontender and No hepatosplenomegaly present Auscultation: normal bowel sounds General: Yes no CVA tenderness Back/Spine/Pelvis Back: no CVA tenderness Skin General skin exam: elasticity normal, turgor normal and dry skin Neuro General: patient oriented x3 Psych Appearance: grossly normal Mental Status: mental status grossly normal Assessment & Plan Assessment & Plan (1) Family history of colon cancer: Code(s): Z80.0 - Family history of malignant neoplasm of digestive organs Category: Medical (2) Diverticulosis: Code(s): K57.90 - Diverticulosis of intestine, part unspecified, without perforation or abscess without bleeding Category: Medical (3) Screen for colon cancer: Code(s): Z12.11 - Encounter for screening for malignant neoplasm of colon Plan Patient is due to go for colonoscopy. What to expect before, during and after procedure discussed with patient. Stressed the importance of good bowel prep and clear liquid diet day before procedure. Patient will follow-up in the office after the procedure. Patient is agreeable to this plan and verbalizes understanding of instructions. She was given the opportunity to ask questions and all questions answered. Thank you for allowing me to participate in her care Orders: Referrals GI Procedure Notification Z12.11 - Encounter for screening for malignant neoplasm of colon Medications: New polyethylene glycol 3350 (Miralax) As directed by gastroenterology department at [facility] 238 grams PO ONCE 238 grams 0RF Z12.11 - Encounter for screening for malignant neoplasm of colon bisacodyl (Dulcolax (bisacodyl)) 10 mg (2 x 5 mg) PO BEDTIME 180 tabs 4RF Coding Level of Care Code Est Pt Level 3 (86252) Diagnoses Family history of colon cancer Z80.0 Diverticulosis K57.90 Screen for colon cancer Z12.11 Time Spent (min) 30 Comment 20 minutes spent with patient and additional 10 minutes spent reviewing her records
[2025-09-29 13:12] VITALS: BP 142/84; PULSE 100; O2SAT 98; BMI 33.8
== END 2025-09-29 13:37 | disposition home or self-care (01) ==
LOC: HO.HGI 12:58
PROVIDERS: PCP Physician Assistant; Visit Provider Nurse Practitioner Family
DX: Z01.818 Encounter for other preprocedural examination (principal); Z12.11 Encounter for screening for malignant neoplasm of colon; Z86.0101 Personal history of adenomatous and serrated colon polyps; K57.90 Diverticulosis of intestine, part unspecified, without perforation or abscess without bleeding
CPT/HCPCS: S0285